=== PATIENT | male | born 1965 | race Caucasian/White ===

== ENCOUNTER 2017-08-12 07:22 | Inpatient (IN) | payer SELFPAY ==
[2017-08-12] MEDS ORDERED: DILTIAZEM HCL 5 MG/ML VIAL IV ONE ×2 (07:30→07:31)
[2017-08-12] MEDS ORDERED: DILTIAZEM HCL 125 MG in DEXTROSE 5 % IN WATER 100 ML IV PRN ×2 (07:31)
--- NOTE | 2017-08-12 07:31 | ERNOTE ---
<Tyrell Acosta - Last Filed: 08/12/17 07:42> Dyspnea - Date Date of Service: 08/12/17 - General Time Seen by Provider: 08/12/17 07:27 - Immun/Allergies/Home Medications Allergies/Adverse Reactions: Allergies venom-wasp [Wasp Venom] Allergy (Severe, Verified 08/12/17 07:29) Anaphylaxis Home Medications: HOME MEDICATIONS Diclofenac Potassium [Cataflam] 50 mg PO QID #60 tablet 09/25/14 [Last Taken Unknown] Diphenoxylate HCl/Atropine [Lomotil Tablet] 1 each PO QID #30 tablet 10/08/14 [ Last Taken Unknown] Furosemide [Lasix] 40 mg PO DAILY 08/12/17 [Last Taken Unknown] Metoprolol Succinate [Toprol Xl] 100 mg PO DAILY 08/12/17 [Last Taken Unknown] Mirtazapine [Mirtazapine (Remeron)] 15 mg PO DAILY 08/12/17 [Last Taken Unknown] Ondansetron [Zofran Odt] 4 mg PO PRN PRN 08/12/17 [Last Taken Unknown] Potassium Chloride 10 meq PO DAILY 08/12/17 [Last Taken Unknown] Warfarin Sodium [Coumadin] 7.5 mg PO DAILY 08/12/17 [Last Taken Unknown] - History of Present Illness Narrative: This is a 52-year-old male with a history of aortic valve dysfunction who comes to the emergency department with sudden onset of shortness of breath and palpitations last night at 10:30. He does have a history of atrial fibrillation. He says this feels like when his heart kicks over and atrial fibrillation. He denies overt chest pain he denies nausea vomiting he has some shortness of breath he does not have a fever or significant cough he has no other complaints Review of Systems - Review of Systems Constitutional: Present: no symptoms reported EYE: Present: no symptoms reported ENT: Present: no symptoms reported Respiratory: Present: shortness of breath Cardiology: Present: palpitations Gastrointestinal/Abdominal: Present: no symptoms reported Genitourinary: Present: no symptoms reported Musculoskeletal: Present: no symptoms reported Skin: Present: no symptoms reported Neurological: Present: no symptoms reported Endocrine: Present: no symptoms reported Hematologic/Lymphatic: Present: no symptoms reported Psych: Present: no symptoms reported All Other Systems: All systems neg except as marked - Patient's Past Medical History Patient History - Medical: Other - patient relates she has Buerger's disease and 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 Patient History - Surgical Procedures: Other - below-knee amputation on the left Physical Exam - Physical Exam General Appearance: Present: wd/wn, alert, other Head Exam: Present: normal inspection - patient appears in mild respiratory distress, no evidence of injury Eye Exam: Normal inspection: bilateral Ears, Nose, Throat: Present: normal ENT inspection Neck: Present: normal inspection, nontender Respiratory: Present: other - mild respiratory distress breath sounds are difficult to assess due to short respiration accessory muscle use Cardiovascular/Chest: Present: other - rate is tachycardic. Difficult to assess of regular or not Gastrointestinal/Abdominal: Present: normal bowel sounds, nontender, nondistended Back Exam: Present: normal inspection, normal range of motion, no CVA tenderness Extremity Exam: Present: normal inspection, non-tender, normal range of motion, other - patient has a left BKA Neurological Exam: Present: alert, oriented, normal mood/affect, no motor/ sensory deficits Skin Exam: Present: normal color, warm/dry Lymphatic Exam: Present: no adenopathy ED Progress - EKG EKG read: Interp. by me EKG Comments: EKG demonstrates atrial fibrillation with rapid ventricular response at 163 V2 has decreased amplitude no acute ischemic changes - Transfer of Care Physician Sign Out: Tyrell Acosta Brief History: 52-year-old male with a history of atrial fibrillation comes in with A. karime which started last night. Cardizem is being given. Labs are pending. Receiving Physician: Laura Jiménez Expected Disposition: Admit Departure Clinical Impression: Pneumonia Qualifiers: Pneumonia type: due to unspecified organism Laterality: left Lung location: lower lobe of lung Qualified Code(s): J18.1 - Lobar pneumonia, unspecified organism Afib Qualifiers: Atrial fibrillation type: unspecified Qualified Code(s): I48.91 - Unspecified atrial fibrillation - Departure Disposition: [facility] Condition: Good <Laura Jiménez - Last Filed: 08/12/17 11:11> Dyspnea - General Source: patient Exam Limitations: no limitations - Immun/Allergies/Home Medications Immunizations: IMMUNIZATION HX Immunizations Up to Date Yes History of Influenza Vaccine No Hx Pneumococcal Vaccination No - History of Present Illness Narrative: Patient was diagnosed with atrial fibrillation three months ago while living in [place]. He was initially admitted for three days, had 2-3 more hospital visits for elevated heart rate. He was also told that he has a valve problem ( mitral?) and that he couldn't be cardioverted till that is taking care off,was started on coumadin (INR a week ago 2.5). He is not sure if he ever was back in sinus rhythm. Every time he gets an exacerbation it is accompanied by dyspnoe, denies any chest pain - Patient's Past Medical History Patient History - Medical: No pertinent hx Patient History - Cardiac/Respiratory: Atrial Fibrillation, COPD, Hypertension, Valvular Heart Disease Patient History - Cancer: No Hx of Cancer - Social History Smoking Status: Former smoker - quit April 2017 after 45py ED Progress - Results and Orders Patient's Lab Results:: I have reviewed the patient's lab results. - Vital Signs Patient's Vital Signs:: I have reviewed the patient's vital signs. Vital Signs: Vital Signs 08/12/17 08/12/17 08/12/17 07:24 07:35 07:36 Temperature 36.3 C L Pulse Rate 180 H 134 H 175 H Respiratory 27 H 20 Rate Blood Pressure 162/78 162/78 O2 Sat by Pulse 100 97 Oximetry 08/12/17 08/12/17 08/12/17 08:00 08:06 08:22 Temperature Pulse Rate 119 H 180 H 129 H Respiratory 21 H Rate Blood Pressure 151/97 146/95 O2 Sat by Pulse 98 Oximetry - X-Ray X-Ray #1 X-Ray: chest - possible early left sided infiltrate Interpretation: Reviewed by me - CT/Ultrasound CT/Ultrasound Narrative: CT chest: no PE, possible infiltrate, cardiomegalie - Progress/Reassessment Progress Note-Subjective: 08/12/17 08:33 on cardizem drip at 5, HR 120-140's, O2sat 94-95 on RA patient still slightly short of breath, few wheezes and decreased air movement. 08/12/17 09:30 Patient heart rate 100's on the monitor, when coming in the room patient patient acutely more short of breath, HR 130-140 's, as far as he know he never had a chest CT, will give lovenox and get chest CT to rule out PE 08/12/17 11:[address] results with patient, comfortable, HR 110's 08/12/17 11:[address] Esthela lynne to admit for pneumonia and a-fib with RVR
[2017-08-12 07:55] LABS: Hematocrit 39.5 % (42.0-52.0); Hemoglobin 12.7 gm/dL (13.5-18.0); Mean Cell Volume 80.8 fl (78-100); Mean Corpuscular Hgb Conc 32.2 g/dl (32-36); Mean Platelet Volume 10.3 fl (6.0-9.5); Neutrophil # 5.3 K/mm3 (1.3-6.0); Neutrophil % 74.3 % (42-75.0); Platelet Count 134 K/mm3 (150-450); Red Blood Count 4.89 M/mm3 (4.7-6.0); Red Cell Distribution Width 14.9 % (11.5-14.0); White Blood Count 7.2 K/mm3 (4.0-10.5)
[2017-08-12 08:03] LABS: Anion Gap 13.8 mmol/L (6.8-13.8); BUN/Creatinine Ratio 16.9 (9.0-21.6); Calcium * 8.7 mg/dL (7.9-10.9); Carbon Dioxide 25.9 mmol/L (24-32.6); Estimated Creat Clear 78.8; Potassium 3.7 mmol/L (3.4-4.6)
[2017-08-12 08:11] LABS: Prothrombin Time (Patient) 12.4 Seconds (9.0-11.0)
[2017-08-12 08:14] LABS: INR 1.24 INR (0.90-1.10)
[2017-08-12] MEDS ORDERED: IPRATROPIUM BROMIDE 0.5 MG/2.5 ML VIAL.NEB IH ONE ×2 (08:42→08:49)
[2017-08-12] MEDS ORDERED: ENOXAPARIN SODIUM 100 MG/ML SYRG SC ONE ×3 (09:26→09:37)
[2017-08-12] MEDS ORDERED: ACETAMINOPHEN 325 MG TABLET PO PRN (12:34)
[2017-08-12] MEDS ORDERED: AZITHROMYCIN 250 MG TABLET PO STA (12:34)
[2017-08-12] MEDS ORDERED: FLU VACC QS2017-18(6MOS UP)/PF 60 MCG/0.5 ML SYRINGE IM ONE (13:22)
[2017-08-12] MEDS ORDERED: AZITHROMYCIN 250 MG TABLET ONE (14:00)
[2017-08-12] MEDS: LORazepam 1 MG TABLET PO PRN ×2 (14:27→21:24)
[2017-08-12] MEDS ORDERED: METOPROLOL TARTRATE 50 MG TABLET PO STA (14:31)
--- NOTE | 2017-08-12 14:47 | HP ---
Chief Complaint - Chief Complaint Date of Service: 08/12/17 Time of Service: 14:36 Chief Complaint: shortness of breath History of Present Illness: Haim Knox is a 52-year-old white male with previous medical history of hypertension, atrial fibrillation, who last night suddenly developed acute shortness of breath associated with palpitations. 3-4 months ago while in [place], the patient had a similar episode and was diagnosed with atrial fibrillation. He was also told that he had some problems with his aortic/ mitral valve? and that he needed it to be repaired. He said he had some calcifications and was told that it was not opening well. He does remember having a stress test done over there. His shortness of breath and palpitation did not get better and so the patient went or emergency room where he was found to be in atrial fibrillation with rapid ventricular response in the 160s to 170s. He was given a Cardizem bolus and was started on IV Cardizem drip and was admitted. He also had this chest x-ray which showed possible beginning pneumonia. Patient underwent a CT scan following PE protocol and this did not show any pulmonary embolism. Again the CT scan showed left lower lobe/lingular infiltrate consider pneumonia. He was started on IV Rocephin and azithromycin. Patient denies any chest pain, fever, or coughing but did admit to chills last night and he thought it was just because he lives in a . - Patient's Past Medical History Patient History - Medical: No pertinent hx Patient History - Cardiac/Respiratory: Atrial Fibrillation, COPD, Hypertension, Valvular Heart Disease Patient History - Cancer: No Hx of Cancer Patient History - Surgical Procedures: Cholecystectomy, Other - Left BKA Patient History - Other: None - Family History Mother Family History - Medical: No pertinent hx - Social History Living Situations: alone Abuse History: No History of abuse Psych History: No pertinent hx Smoking Status: Former smoker Have you smoked in the past 12 months: Yes Do you dip or chew tobacco: No Patient requests Smoking Cessation Consult: No Initiate information on Smoking Cessation: No Alcohol Use: none Drug Use: marijuana - Immunizations Immunizations Up to Date: Yes Hx Pneumococcal Vaccination: No History of Influenza Vaccine: No Review Of Systems (GEN) - Review of Systems Generalized/Overall Review: Present: Chills. Absent: Weakness, Fever EENTM: Present: No Symptoms Reported Respiratory: Present: Shortness of Breath. Absent: Cough, Orthopnea, Wheezing Cardiac: Present: Palpitations. Absent: Chest Pain, Edema Abdominal: Absent: Nausea, Vomiting Genitourinary: Absent: Urgency, Frequency Musculoskeletal: Absent: Joint Pain Allergies/Adverse Reactions: Allergies Allergy/AdvReac Type Severity Reaction Status Date / Time venom-wasp [Wasp Venom] Allergy Severe Anaphylaxis Verified 08/12/17 14:07 NSAIDS (Non-Steroidal AdvReac Unknown unknown Verified 08/12/17 14:10 Anti-Inflamma Home Medications: HOME MEDICATIONS Albuterol Sulfate [Albuterol Sulfate 2.5 MG/3 ML] 2.5 mg IH PRN PRN 08/12/17 [ Last Taken Unknown] Albuterol Sulfate [Proair Hfa] 2 puff IH Q4H PRN 08/12/17 [Last Taken Unknown] Fluticasone/Salmeterol [Advair 100-50 Diskus] 1 puff IH BID 08/12/17 [Last Taken Unknown] Furosemide [Lasix] 40 mg PO DAILY 08/12/17 [Last Taken Unknown] Metoprolol Succinate [Toprol Xl] 100 mg PO DAILY 08/12/17 [Last Taken Unknown] Mirtazapine [Mirtazapine (Remeron)] 30 mg PO HS 08/12/17 [Last Taken Unknown] Ondansetron [Zofran Odt] 4 mg PO PRN PRN 08/12/17 [Last Taken Unknown] Potassium Chloride 10 meq PO DAILY 08/12/17 [Last Taken Unknown] Warfarin Sodium [Coumadin] 3.25 mg PO DAILY 08/12/17 [Last Taken Unknown] Exam - Exam Vital Signs: Vital Signs - Last Taken Temp 36.6 C 08/12/17 12:03 Pulse 96 08/12/17 13:43 Resp 12 08/12/17 12:08 BP 141/87 08/12/17 12:03 Pulse Ox 96 08/12/17 12:08 Constitutional: Present: Alert, Oriented x3, Cooperative ENT Exam: Present: hearing grossly normal Eye Exam: bilateral eye: normal inspection, PERRL, EOMI Neck: Present: supple Respiratory: Present: decreased breath sounds, No rales, No wheezing Cardiovascular/Chest: Present: no JVD, systolic murmur, irregularly irregular Abdomen: Present: Normal bowel sounds, soft, nontender, nondistended Extremity: Present: no calf tenderness, other - left BKA Diagnostic Studies: Laboratory Results WBC 7.2 K/mm3 (4.0-10.5) 08/12/17 07:45 RBC 4.89 M/mm3 (4.7-6.0) 08/12/17 07:45 Hgb 12.7 gm/dL (13.5-18.0) L 08/12/17 07:45 Hct 39.5 % (42.0-52.0) L 08/12/17 07:45 MCV 80.8 fl (78-100) 08/12/17 07:45 MCH 26.0 pg (27-31) L 08/12/17 07:45 MCHC 32.2 g/dl (32-36) 08/12/17 07:45 RDW 14.9 % (11.5-14.0) H 08/12/17 07:45 Plt Count 134 K/mm3 (150-450) L 08/12/17 07:45 MPV 10.3 fl (6.0-9.5) H 08/12/17 07:45 Immature Gran % (Auto) 0.80 % (0.001-0.429) H 08/12/17 07:45 Immature Gran # (Auto) 0.06 K/mm3 (0.000-0.0310) H 08/12/17 07:45 Neutrophils % 74.3 % (42-75.0) 08/12/17 07:45 Lymphocytes % 14.7 % (20-51) L 08/12/17 07:45 Monocytes % 6.7 % (0.0-9) 08/12/17 07:45 Eosinophils % 2.8 % (0.0-3.0) 08/12/17 07:45 Basophils % 0.7 % (0.0-1.0) 08/12/17 07:45 Nucleated RBC % 0.0 k/mm3 (0-1) 08/12/17 07:45 Neutrophils # 5.3 K/mm3 (1.3-6.0) 08/12/17 07:45 Lymphocytes # 1.1 k/mm3 (1.5-3.5) L 08/12/17 07:45 Monocytes # 0.5 k/mm3 (0.0-1.0) 08/12/17 07:45 Eosinophils # 0.2 k/mm3 (0.0-0.7) 08/12/17 07:45 Absolute Basophils 0.1 k/mm3 (0.0-0.1) 08/12/17 07:45 PT 12.4 Seconds (9.0-11.0) H 08/12/17 07:45 INR (Anticoag Therapy) 1.24 INR (0.90-1.10) H 08/12/17 07:45 Sodium 142 mmol/L (132-142) 08/12/17 07:45 Plasma Sodium 142 mmol/L (130-142) 08/12/17 07:45 Potassium 3.7 mmol/L (3.4-4.6) 08/12/17 07:45 Chloride 106 mmol/L (97-106) 08/12/17 07:45 Carbon Dioxide 25.9 mmol/L (24-32.6) 08/12/17 07:45 Anion Gap 13.8 mmol/L (6.8-13.8) 08/12/17 07:45 BUN 21 mg/dL (6-23) 08/12/17 07:45 Creatinine 1.24 mg/dL (0.4-1.4) 08/12/17 07:45 Est GFR (Non-Af Amer) 65 mL/min (60-130) 08/12/17 07:45 BUN/Creatinine Ratio 16.9 (9.0-21.6) 08/12/17 07:45 Random Glucose 121 mg/dL (70-110) H 08/12/17 07:45 Calcium 8.7 mg/dL (7.9-10.9) 08/12/17 07:45 Troponin I Less than 0.017 ng/ml (0.00-0.10) 08/12/17 07:45 Assessment/Plan - Assessment/Plan (1) Afib Assessment: HR in the low teens. Will try to get his medical records. continue with IV cardizem drip. Will give 50mg of PO metoprolol tartrate now and taper cardizem drip and stop it. Will defer from doing work up as it looks he had several done in [facility] 3-4 motnhs ago. Problem: Acute Qualifiers: Atrial fibrillation type: unspecified Qualified Code(s): I48.91 - Unspecified atrial fibrillation (2) Pneumonia Assessment: continue with IV antibiotics Problem: Acute Qualifiers: Pneumonia type: due to unspecified organism Laterality: left Lung location: lower lobe of lung Qualified Code(s): J18.1 - Lobar pneumonia, unspecified organism (3) COPD (chronic obstructive pulmonary disease) Assessment: continue with inhalers and nebs Problem: Acute (4) Buerger's disease Assessment: s/p BKA. The patient stopped smoking only after being diagnosed with AFib 3-4 months ago. Problem: Acute
[2017-08-12] MEDS ORDERED: NON-FORMULARY 1 DOSE DOSE (Albuterol Sulfate 2.5 MG) IH PRN (14:48)
[2017-08-12] MEDS ORDERED: ALBUTEROL SULFATE 2.5 MG/0.5 ML VIAL.NEB IH PRN (15:00)
[2017-08-12] MEDS: WARFARIN SODIUM 10 MG TABLET PO SCH (16:48)
[2017-08-12] MEDS: ALBUTEROL SULFATE 2.5 MG/0.5 ML VIAL.NEB IH SCH (18:23)
[2017-08-12] MEDS: BUDESONIDE 0.25 MG/2 ML VIAL.NEB IH SCH (18:23)
[2017-08-12] MEDS ORDERED: METOPROLOL TARTRATE 25 MG TABLET PO ONE (20:15)
[2017-08-12] MEDS ORDERED: METOPROLOL TARTRATE 25 MG TABLET ONE (21:49)
[2017-08-12] MEDS ORDERED: MIRTAZAPINE 15 MG TABLET ONE (23:15)
[2017-08-12] MEDS ORDERED: MIRTAZAPINE 15 MG TABLET PO ONE (23:30)
[2017-08-12] MEDS: ONDANSETRON HCL/PF 2 MG/ML VIAL IV PRN (23:54)
[2017-08-13] MEDS ORDERED: LORazepam 2 MG/ML DISP.SYRIN IV ONE ×6 (00:44→11:38)
[2017-08-13] MEDS: ONDANSETRON HCL/PF 2 MG/ML VIAL IV PRN (03:39)
--- NOTE | 2017-08-13 05:25 | PN ---
Progess Note - Interim Narrative: 08/13/17 05:09 Patient stated he smokes meth and last used 2-3 days ago, he complaints of nausea, vomiting, abdominal pain, anxiety, restlessness , sleep disturbance and was observed hallucinating. He denies chest pain, shortness of breath, palpitation Ativan 1mg x2 and zofran. pt stated "if he could just get some meth he would feel much better" last time he went through withdrawal was while he was hospitalized in [place] for A-fib. case discussed with Attending and consulted Dr hamilton for further management. Serum drug screen and give additional dose of ativan 2mg x1. Plan of care discussed with pt he verbalized understanding and agrees.
[2017-08-13 06:34] LABS: Prothrombin Time (Patient) 12.2 Seconds (9.0-11.0)
[2017-08-13 06:35] LABS: INR 1.22 INR (0.90-1.10)
[2017-08-13] MEDS ORDERED: DIATRIZOATE MEGLUMINE, SODIUM 30 ML BTL PO ONE (07:09)
[2017-08-13] MEDS ORDERED: ONDANSETRON HCL/PF 2 MG/ML VIAL IV ONE (08:12)
--- NOTE | 2017-08-13 08:55 | PN ---
Subjective - Date and Time Seen Date: 08/13/17 Time: 08:46 Subjective Narrative: Patient has been having withdrawal reaction from methamphetamine. Dr. Montoya on consult.Currently sleeping. Had IV ativan around 7 am. Objective - Review of Systems Misc: All systems neg except as marked - asleep . - Vitals Vitals: Last Vital Signs Temp 37.2 C 08/13/17 03:00 Pulse 111 H 08/13/17 03:00 Resp 22 H 08/13/17 03:00 BP 150/90 08/13/17 03:00 Pulse Ox 95 08/13/17 03:00 - Abnormal Lab Findings Abnormal Lab Findings: Abnormal Lab Results 08/13/17 Range/Units 06:00 PT 12.2 H (9.0-11.0) Seconds INR (Anticoag Therapy) 1.22 H (0.90-1.10) INR - Exam Constitutional: Present: Other - sedated Respiratory: Present: decreased breath sounds, No rales, No wheezing Cardiovascular/Chest: Present: regular rate, rhythm, no JVD, tachycardia, systolic murmur Abdomen: Present: Normal bowel sounds, soft, nontender, nondistended Extremity: Present: no calf tenderness Assessment/Plan - Problems/Diagnosis (1) Methamphetamine dependence Problem: Acute Narrative: with withdrawal reaction Continue with IV ativan. If not succesful , will try Haldol. will get consult with Dr. Montoya. ADDENDUM:Fell down on the floor as he tried to stand up. will transfer back to the unit. (2) Afib Problem: Acute Qualifiers: Atrial fibrillation type: unspecified Qualified Code(s): I48.91 - Unspecified atrial fibrillation Narrative: continue with Toprol XL. (3) Pneumonia Problem: Acute Qualifiers: Pneumonia type: due to unspecified organism Laterality: left Lung location: lower lobe of lung Qualified Code(s): J18.1 - Lobar pneumonia, unspecified organism Narrative: continue with IV antibiotics. (4) COPD (chronic obstructive pulmonary disease) Problem: Acute Narrative: continue with inhalers/nebs. (5) Buerger's disease Problem: Acute
[2017-08-13] MEDS ORDERED: MIRTAZAPINE 15 MG TABLET PO SCH (09:00)
[2017-08-13] MEDS ORDERED: FUROSEMIDE 10 MG/ML VIAL IV ONE (09:43)
[2017-08-13] MEDS: METOPROLOL SUCCINATE 100 MG TABLET.SA PO SCH (09:59)
[2017-08-13] MEDS ORDERED: LABETALOL HCL 5 MG/ML VIAL IV ONE ×2 (10:00→13:00)
[2017-08-13] MEDS: FUROSEMIDE 40 MG TABLET PO SCH (10:00)
[2017-08-13] MEDS: POTASSIUM CHLORIDE 10 MEQ TABLET.SA PO SCH (10:19)
[2017-08-13 10:27] LABS: Cocaine Ur Negative (NEGATIVE); Urine Barbiturate Negative (NEGATIVE); Urine Benzodiazepines Negative (NEGATIVE); Urine Opiates Negative (NEGATIVE); Urine PCP Negative (NEGATIVE)
[2017-08-13 10:31] LABS: Urine THC Positive (NEGATIVE)
[2017-08-13] MEDS ORDERED: LORazepam 2 MG/ML DISP.SYRIN ONE (11:37)
[2017-08-13] MEDS ORDERED: AZITHROMYCIN 250 MG TABLET PO SCH (12:35)
[2017-08-13] MEDS: BUDESONIDE 0.25 MG/2 ML VIAL.NEB IH SCH ×2 (12:44→20:48)
[2017-08-13] MEDS: ALBUTEROL SULFATE 2.5 MG/0.5 ML VIAL.NEB IH SCH ×2 (12:44→20:44)
[2017-08-13] MEDS: AZITHROMYCIN 250 MG in DEXTROSE 5 % IN WATER 250 ML IV SCH ×2 (13:39)
[2017-08-13] MEDS ORDERED: DILTIAZEM HCL 5 MG/ML VIAL IV ONE (14:34)
[2017-08-13] MEDS ORDERED: HALOPERIDOL LACTATE 5 MG/ML VIAL IM PRN (14:36)
[2017-08-13 15:26] LABS: Hematocrit 41.4 % (42.0-52.0); Hemoglobin 13.4 gm/dL (13.5-18.0); Mean Corpuscular Hemoglobin 25.6 pg (27-31); Mean Corpuscular Hgb Conc 32.4 g/dl (32-36); Mean Platelet Volume 10.2 fl (6.0-9.5); Neutrophil # 10.3 K/mm3 (1.3-6.0); Neutrophil % 91.7 % (42-75.0); Platelet Count 166 K/mm3 (150-450); Red Blood Count 5.24 M/mm3 (4.7-6.0); Red Cell Distribution Width 15.3 % (11.5-14.0); White Blood Count 11.3 K/mm3 (4.0-10.5)
[2017-08-13 16:10] LABS: Albumin * 3.7 gm/dl (3.4-5.0); Anion Gap 15.2 mmol/L (6.8-13.8); BUN/Creatinine Ratio 13.4 (9.0-21.6); Bilirubin, Total 1.2 mg/dL (0.0-1.1); Ca. Corrected For Albumin 8.9 mg/dL (8.4-10.2); Carbon Dioxide 24.8 mmol/L (24-32.6); Total Protein 7.2 gm/dL (6.2-8.2)
[2017-08-13] MEDS: DILTIAZEM HCL 125 MG in DEXTROSE 5 % IN WATER 100 ML IV PRN ×4 (17:04→23:56)
[2017-08-13] MEDS: WARFARIN SODIUM 10 MG TABLET PO SCH (17:39)
[2017-08-13] MEDS: LORazepam 1 MG TABLET PO PRN (19:49)
[2017-08-13] MEDS: MIRTAZAPINE 15 MG TABLET PO SCH (21:09)
[2017-08-14 05:47] LABS: Hematocrit 40.9 % (42.0-52.0); Hemoglobin 13.2 gm/dL (13.5-18.0); Mean Cell Volume 79.7 fl (78-100); Mean Corpuscular Hemoglobin 25.7 pg (27-31); Mean Corpuscular Hgb Conc 32.3 g/dl (32-36); Mean Platelet Volume 10.1 fl (6.0-9.5); Neutrophil # 12.7 K/mm3 (1.3-6.0); Neutrophil % 81.8 % (42-75.0); Platelet Count 198 K/mm3 (150-450); Red Blood Count 5.13 M/mm3 (4.7-6.0); Red Cell Distribution Width 15.3 % (11.5-14.0); White Blood Count 15.6 K/mm3 (4.0-10.5)
[2017-08-14 06:05] LABS: Anion Gap 14.8 mmol/L (6.8-13.8); BUN/Creatinine Ratio 14.3 (9.0-21.6); Calcium * 9.2 mg/dL (7.9-10.9); Carbon Dioxide 27.8 mmol/L (24-32.6); Estimated Creat Clear 87.2; Potassium 3.6 mmol/L (3.4-4.6)
[2017-08-14 06:08] LABS: Prothrombin Time (Patient) 22.1 Seconds (9.0-11.0)
[2017-08-14] MEDS: ALBUTEROL SULFATE 2.5 MG/0.5 ML VIAL.NEB IH SCH ×2 (06:15→19:25)
[2017-08-14] MEDS: BUDESONIDE 0.25 MG/2 ML VIAL.NEB IH SCH ×2 (06:16→18:16)
[2017-08-14 06:22] LABS: INR 2.19 INR (0.90-1.10)
--- NOTE | 2017-08-14 07:03 | PN ---
Subjective - Date and Time Seen Date: 08/14/17 Time: 06:47 Subjective Narrative: Mr. Licona seen this am. Required Haldol x 1 due to agitation. Went into Afib with RVR rate in 120-130s but slowed down to 110s in 1 hour. Required O2 due to desaturations to 79% RA. Unable to be evaluated by psychiatry due to obtundation. Objective - Vitals Vitals: Last Vital Signs Temp 37.0 C 08/14/17 03:00 Pulse 117 H 08/14/17 06:25 Resp 22 H 08/14/17 06:25 BP 166/78 08/14/17 05:00 Pulse Ox 94 08/14/17 06:15 - Abnormal Lab Findings Abnormal Lab Findings: Abnormal Lab Results 08/13/17 08/13/17 08/14/17 Range/Units 15:24 15:24 05:43 WBC 11.3 H D (4.0-10.5) K/mm3 Hgb 13.4 L (13.5-18.0) gm/dL Hct 41.4 L (42.0-52.0) % MCH 25.6 L (27-31) pg RDW 15.3 H (11.5-14.0) % MPV 10.2 H (6.0-9.5) fl Immature Gran % (Auto) 0.70 H (0.001-0.429) % Immature Gran # (Auto) 0.08 H (0.000-0.0310) K/mm3 Neutrophils % 91.7 H (42-75.0) % Lymphocytes % 5.2 L (20-51) % Neutrophils # 10.3 H (1.3-6.0) K/mm3 Lymphocytes # 0.6 L (1.5-3.5) k/mm3 PT 22.1 H (9.0-11.0) Seconds INR (Anticoag Therapy) 2.19 H (0.90-1.10) INR Anion Gap 15.2 H (6.8-13.8) mmol/L Random Glucose 227 H D (70-110) mg/dL Total Bilirubin 1.2 H (0.0-1.1) mg/dL 08/14/17 08/14/17 Range/Units 05:43 05:43 WBC 15.6 H D (4.0-10.5) K/mm3 Hgb 13.2 L (13.5-18.0) gm/dL Hct 40.9 L (42.0-52.0) % MCH 25.7 L (27-31) pg RDW 15.3 H (11.5-14.0) % MPV 10.1 H (6.0-9.5) fl Immature Gran % (Auto) 0.50 H (0.001-0.429) % Immature Gran # (Auto) 0.08 H (0.000-0.0310) K/mm3 Neutrophils % 81.8 H (42-75.0) % Lymphocytes % 10.5 L (20-51) % Neutrophils # 12.7 H (1.3-6.0) K/mm3 Lymphocytes # (1.5-3.5) k/mm3 PT (9.0-11.0) Seconds INR (Anticoag Therapy) (0.90-1.10) INR Anion Gap 14.8 H (6.8-13.8) mmol/L Random Glucose 123 H D (70-110) mg/dL Total Bilirubin (0.0-1.1) mg/dL - Exam Constitutional: Present: No distress, Somnolent ENT Exam: Present: normal ENT inspection Neck: Present: non-tender Breasts: Present: Exam deferred Respiratory: Present: lungs clear, No rales, No wheezing Cardiovascular/Chest: Present: no edema, no murmur, irregularly irregular Abdomen: Present: Normal bowel sounds, soft, nontender /Rectal: Present: Exam deferred Extremity: Present: normal range of motion, non-tender, normal inspection Skin Exam: Present: warm/dry, no cyanosis Lymphatic: Present: no adenopathy Neurologic: Present: disoriented x 3 Appearance: Present: appropriate appearance Eye contact: Present: compulsive Thoughts: Present: no apparent hallucination Assessment/Plan - Problems/Diagnosis (1) Pneumonia Problem: Acute Qualifiers: Pneumonia type: due to unspecified organism Laterality: left Lung location: lower lobe of lung Qualified Code(s): J18.1 - Lobar pneumonia, unspecified organism Narrative: CT of the chest showed LLL Infiltrates. On Ceftriaxone and Azithromycin. Blood cultures pending. (2) Afib Problem: Acute Qualifiers: Atrial fibrillation type: unspecified Qualified Code(s): I48.91 - Unspecified atrial fibrillation Narrative: On coumadin. On max dose of Diltiazem gtt went into Afib with RVR of 120s-130s for about 1 hr in the night. On Metoprolol XL 100mg daily. (3) COPD (chronic obstructive pulmonary disease) Problem: Chronic Narrative: O2 supplementation. Continue Pulmicort and duoneb treatments. (4) Methamphetamine dependence Problem: Chronic Narrative: Psychiatry consulted. Psychiatry unable to to evaluate yesterday due to obtundation. (5) Buerger's disease Problem: Chronic
[2017-08-14] MEDS: METOPROLOL SUCCINATE 100 MG TABLET.SA PO SCH ×2 (07:06→09:00)
[2017-08-14] MEDS: FUROSEMIDE 40 MG TABLET PO SCH (08:39)
[2017-08-14] MEDS: POTASSIUM CHLORIDE 10 MEQ TABLET.SA PO SCH (08:40)
[2017-08-14] MEDS: DILTIAZEM HCL 125 MG in DEXTROSE 5 % IN WATER 100 ML IV PRN ×2 (10:13)
[2017-08-14] MEDS: AZITHROMYCIN 250 MG in DEXTROSE 5 % IN WATER 250 ML IV SCH ×2 (14:17)
[2017-08-14] MEDS: ONDANSETRON HCL/PF 2 MG/ML VIAL IV PRN (15:20)
[2017-08-14] MEDS: MIRTAZAPINE 15 MG TABLET PO SCH (21:05)
[2017-08-15] MEDS: LORazepam 1 MG TABLET PO PRN (02:21)
[2017-08-15] MEDS: ONDANSETRON HCL/PF 2 MG/ML VIAL IV PRN (02:55)
[2017-08-15] MEDS ORDERED: ONDANSETRON HCL/PF 2 MG/ML VIAL IV ONE (05:28)
[2017-08-15] MEDS: METOPROLOL SUCCINATE 100 MG TABLET.SA PO SCH ×2 (06:04→08:28)
[2017-08-15 06:17] LABS: Prothrombin Time (Patient) 28.7 Seconds (9.0-11.0)
[2017-08-15 06:21] LABS: INR 2.84 INR (0.90-1.10)
--- NOTE | 2017-08-15 06:47 | PN ---
Subjective - Date and Time Seen Date: 08/15/17 Time: 06:43 Subjective Narrative: Pt seen this am. Is complaining of feeling nauseated. Was in A-fib most of the night but HR was in the low 100s. This morning from about 06.00am he is noted to be in A-fib with RVR of 120s-130s. Is yet to be seen by Psychiatry. No other issues according to nursing. Objective - Vitals Vitals: Last Vital Signs Temp 36.9 C 08/15/17 00:00 Pulse 128 H 08/15/17 06:04 Resp 22 H 08/15/17 05:00 BP 183/123 08/15/17 06:04 Pulse Ox 91 08/15/17 04:00 - Abnormal Lab Findings Abnormal Lab Findings: Abnormal Lab Results 08/15/17 Range/Units 05:35 PT 28.7 H (9.0-11.0) Seconds INR (Anticoag Therapy) 2.84 H (0.90-1.10) INR - Exam Constitutional: Present: Alert, Oriented x3, Cooperative, No distress ENT Exam: Present: normal ENT inspection, moist mucous membranes. Absent: nasal drainage, pharyngeal erythema Breasts: Present: Exam deferred Respiratory: Present: lungs clear, No rales Cardiovascular/Chest: Present: no chest tenderness, no edema, no murmur, irregularly irregular Abdomen: Present: Normal bowel sounds, soft, nontender /Rectal: Present: Exam deferred Extremity: Present: other - LT below knee amputation. Skin Exam: Present: warm/dry, no cyanosis Lymphatic: Present: no adenopathy Neurologic: Present: alert, normal mood/affect, oriented x 3 Appearance: Present: appropriate appearance, appropriate insight Eye contact: Present: good eye contact, normal speech, compulsive Thoughts: Present: no apparent hallucination Assessment/Plan - Problems/Diagnosis (1) Pneumonia Problem: Acute Qualifiers: Pneumonia type: due to unspecified organism Laterality: left Lung location: lower lobe of lung Qualified Code(s): J18.1 - Lobar pneumonia, unspecified organism (2) Afib Problem: Acute Qualifiers: Atrial fibrillation type: unspecified Qualified Code(s): I48.91 - Unspecified atrial fibrillation (3) COPD (chronic obstructive pulmonary disease) Problem: Chronic (4) Methamphetamine dependence Problem: Chronic (5) Buerger's disease Problem: Chronic
[2017-08-15] MEDS: ALBUTEROL SULFATE 2.5 MG/0.5 ML VIAL.NEB IH SCH (06:55)
[2017-08-15] MEDS: POTASSIUM CHLORIDE 10 MEQ TABLET.SA PO SCH (08:30)
[2017-08-15] MEDS: FUROSEMIDE 40 MG TABLET PO SCH (08:30)
[2017-08-15 09:29] LABS: Hematocrit 42.6 % (42.0-52.0); Hemoglobin 13.5 gm/dL (13.5-18.0); Mean Cell Volume 81.3 fl (78-100); Mean Corpuscular Hemoglobin 25.8 pg (27-31); Mean Corpuscular Hgb Conc 31.7 g/dl (32-36); Mean Platelet Volume 10.6 fl (6.0-9.5); Neutrophil # 10.3 K/mm3 (1.3-6.0); Neutrophil % 81.5 % (42-75.0); Platelet Count 189 K/mm3 (150-450); Red Blood Count 5.24 M/mm3 (4.7-6.0); Red Cell Distribution Width 15.4 % (11.5-14.0); White Blood Count 12.6 K/mm3 (4.0-10.5)
[2017-08-15 09:41] LABS: Anion Gap 15.1 mmol/L (6.8-13.8); BUN/Creatinine Ratio 18.3 (9.0-21.6); Calcium * 9.2 mg/dL (7.9-10.9); Carbon Dioxide 27.2 mmol/L (24-32.6); Estimated Creat Clear 77.5; Potassium 4.3 mmol/L (3.4-4.6)
[2017-08-15] MEDS: BUDESONIDE 0.25 MG/2 ML VIAL.NEB IH SCH (10:58)
[2017-08-15 12:29] VITALS: BP 124/79
--- NOTE | 2017-08-15 13:25 | DS ---
(1) Afib Diagnosis(s): rate controlled now. Problem: Acute Qualifiers: Atrial fibrillation type: persistent Qualified Code(s): I48.1 - Persistent atrial fibrillation (2) Pneumonia Problem: Acute Qualifiers: Pneumonia type: due to unspecified organism Laterality: left Lung location: lower lobe of lung Qualified Code(s): J18.1 - Lobar pneumonia, unspecified organism (3) Methamphetamine dependence Problem: Chronic (4) COPD (chronic obstructive pulmonary disease) Problem: Chronic (5) Buerger's disease Problem: Chronic (6) Mitral valve stenosis, moderate Problem: Acute (7) Pulmonary hypertension Problem: Acute Description of Stay: Haim Knox is a 52-year-old white male with previous medical history of hypertension, atrial fibrillation, Chronic Hepatitis C, COPD, methamphetamine abuse, Buergers disease s/p BKA who was admitted on 08/12/17 because sudden shortness of breath. One day prior to admission, he suddenly developed acute shortness of breath associated with palpitations. 3-4 months ago while in [place], the patient had a similar episode and was diagnosed with atrial fibrillation. He was also told that he had some problems with his mitral valve ? and that he needed it to be repaired. He said he had some calcifications and was told that it was not opening well. He does remember having a stress test done over there. His shortness of breath and palpitation did not get better and so the patient went to our emergency room where he was found to be in atrial fibrillation with rapid ventricular response in the 160s to 170s. He was given a Cardizem bolus and was started on IV Cardizem drip and was admitted. He also had this chest x-ray which showed possible beginning pneumonia. Patient underwent a CT scan following PE protocol and this did not show any pulmonary embolism. Again the CT scan showed left lower lobe/lingular infiltrate consider pneumonia. He was started on IV Rocephin and azithromycin. Patient denies any chest pain, fever, or coughing but did admit to chills last night and he thought it was just because he lives in a . His HR got controlled and he was restarted on his Toprol XL . He then developed hallucinations and combative behavior and had to put back to SCU for methamphethamine withdrawl reactions. His HR and abd BP shot up to the roof. He was given IV ativan and then IV haldol . He also got IV Labetalol and the restarted back on Cardizem drip. Psych consult was done but but each time he came the patient was still sedated and drowsy. He is now rate controlled and AFib management with rate control vs rhythm control was discussed with patient. I talked with Dr. Montoya and he says it was safe to send him home and to follow up with him next week. We will refer him to cardiology of his choosing for his Afib , Pulmonary Hypertension and his Mitral Stenosis. He had a stress test in [facility] ([facility]) and it was normal . His MS had a mean gradient of 10 mm Hg. He also had Pulmonary HTN, severe, RVSP of 65-70. His EF was 60-65 % with LAE, 6.1 cm. Procedures Performed: none Discharge Disposition: Home self care Disposition: Home self-care Condition: Good Discharge Activity: Activity as tolerated Discharge Diet: Low salt Problem Oriented Discharge Instructions to Patient/Family: Mitral Valve Stenosis, Pulmonary Hypertension, Atrial Fibrillation, [id number] Additional Patient Instructions (free text): Follow-up with Saturday09/13/17 @ 9:30am Follow up with Saturday08/27/17 @ 1:30pm Please make an appointment with cardiology of his choosing- for his AFib, Pulmonary Hypertension and Mitral Stenosis. Prescriptions (Any new or edited meds): Acetaminophen [Tylenol] 650 mg PO Q4H PRN #30 tablet PRN Reason: Mild Pain Levofloxacin [Levaquin] 750 mg PO DAILY #5 tablet Warfarin Sodium [Coumadin] 5 mg PO DAILY #30 tablet Complete Home Medications List: Complete Home Medication List: Albuterol Sulfate [Albuterol Sulfate 2.5 MG/3 ML] 2.5 mg IH PRN PRN 08/12/17 Albuterol Sulfate [Proair Hfa] 2 puff IH Q4H PRN 08/12/17 Fluticasone/Salmeterol [Advair 100-50 Diskus] 1 puff IH BID 08/12/17 Furosemide [Lasix] 40 mg PO DAILY 08/12/17 Metoprolol Succinate [Toprol Xl] 100 mg PO DAILY 08/12/17 Mirtazapine [Remeron] 30 mg PO HS 08/12/17 Potassium Chloride 10 meq PO DAILY 08/12/17 Acetaminophen [Tylenol] 650 mg PO Q4H PRN #30 tablet 08/15/17 Levofloxacin [Levaquin] 750 mg PO DAILY #5 tablet 08/15/17 Warfarin Sodium [Coumadin] 5 mg PO DAILY #30 tablet 08/15/17 Amb Orders for Discharge: Prothrombin Time Time Frame: 08/19/17, Location: Determined By Patient
[2017-08-15] MEDS: AZITHROMYCIN 250 MG in DEXTROSE 5 % IN WATER 250 ML IV SCH ×2 (14:28)
[2017-08-15] MEDS ORDERED: WARFARIN SODIUM 6 MG TABLET PO SCH (17:00)
[2017-08-15] MEDS ORDERED: WARFARIN SODIUM 1 TAB TAB PO SCH (17:00)
== END 2017-08-15 15:36 | disposition home or self-care (01) | DRG 308 ==
LOC: ER 07:22 → MS 11:47 → INTOOBSV 11:47 → SCU 12:26 → MS 18:21 → SCU 08-13 09:12 → INTOOBSV 08-13 13:00 → OBSVTOIN 08-13 13:00
PROVIDERS: ADMIT Internal Medicine; ATTEND Internal Medicine
DX: I48.1 Persistent atrial fibrillation (principal); J18.1 Lobar pneumonia, unspecified organism; F15.23 Other stimulant dependence with withdrawal; I34.2 Nonrheumatic mitral (valve) stenosis; I73.1 Thromboangiitis obliterans [Buerger's disease]; J44.9 Chronic obstructive pulmonary disease, unspecified; I70.0 Atherosclerosis of aorta; Z89.512 Acquired absence of left leg below knee; Z79.01 Long term (current) use of anticoagulants; F17.210 Nicotine dependence, cigarettes, uncomplicated; Z23 Encounter for immunization
CPT/HCPCS: 36415; 70450; 71010; 71275; 74176; 80048; 80053; 80307; 84443; 84484; 85025; 85610; 87040; 90686; 93005; 94640; 96365; 96372; 96375; 99284; G0008; G0378; J2405

== ENCOUNTER 2017-08-20 20:47 | Observation (INO) | payer MEDICAID ==
[2017-08-20] MEDS ORDERED: DILTIAZEM HCL 5 MG/ML VIAL IV ONE ×2 (20:55→21:04)
[2017-08-20] MEDS ORDERED: DILTIAZEM HCL 125 MG in DEXTROSE 5 % IN WATER 100 ML IV PRN ×2 (21:09)
--- NOTE | 2017-08-20 21:31 | ERNOTE ---
Chest Pain/Cardiac HPI Chief Complaint: Chest Pain Time Seen by Provider: 08/20/17 20:53 Source: patient Exam Limitations: no limitations Immunizations: IMMUNIZATION HX Immunizations Up to Date Yes History of Influenza Vaccine Yes Hx Pneumococcal Vaccination No Allergies/Adverse Reactions: Allergies venom-wasp [Wasp Venom] Allergy (Severe, Verified 08/20/17 21:16) Anaphylaxis NSAIDS (Non-Steroidal Anti-Inflamma Adverse Reaction (Unknown, Verified 21:16) unknown Patient unsure of reason. in [place] told him to not take NSAIDs due to abdominal problems. Home Medications: HOME MEDICATIONS Albuterol Sulfate [Albuterol Sulfate 2.5 MG/3 ML] 2.5 mg IH PRN PRN 08/12/17 [ Last Taken Unknown] Albuterol Sulfate [Proair Hfa] 2 puff IH Q4H PRN 08/12/17 [Last Taken Unknown] Fluticasone/Salmeterol [Advair 100-50 Diskus] 1 puff IH BID 08/12/17 [Last Taken Unknown] Furosemide [Lasix] 40 mg PO DAILY 08/12/17 [Last Taken Unknown] Metoprolol Succinate [Toprol Xl] 100 mg PO DAILY 08/12/17 [Last Taken Unknown] Mirtazapine [Remeron] 30 mg PO HS 08/12/17 [Last Taken Unknown] Potassium Chloride 10 meq PO DAILY 08/12/17 [Last Taken Unknown] Acetaminophen [Tylenol] 650 mg PO Q4H PRN #30 tablet 08/15/17 [Last Taken Unknown] Warfarin Sodium [Coumadin] 3.75 mg PO DAILY 08/20/17 [Last Taken Unknown] Narrative: Pt began to have chest pressure and shortness of breath about 2-3 hours [employer]. He has mitral valve calcifications and has been told that he needs mitral valve replacement. He recently moved here from [place] where this was found and has not seen cardiology here. Timing: getting worse Severity/Quality: moderate, pressure Location: central Chest Pain Radiation: no radiation Activities at Onset: none Modifying Factors - Improves: Present: nothing Modifying Factors - Worsens: Present: movement Nitro Today/Relief: no nitro taken today Aspirin Treatment Today: no aspirin today Associated Symptoms: Present: shortness of breath, diaphoresis, palpitations. Absent: dizziness, syncope, nausea, vomiting Prior Chest Pain/Cardiac Workup: Reports: echocardiogram Prior Treatment: Reports: recently seen, recently hospitalized Review of Systems - Review of Systems Constitutional: Absent: recent illness EYE: Present: no symptoms reported ENT: Present: no symptoms reported Respiratory: Present: shortness of breath, orthopnea Cardiology: Present: See HPI, palpitations Gastrointestinal/Abdominal: Absent: nausea, vomiting Genitourinary: Present: no symptoms reported Musculoskeletal: Absent: back pain Skin: Present: no symptoms reported Neurological: Present: no symptoms reported Endocrine: Present: excessive sweating Hematologic/Lymphatic: Present: no symptoms reported Psych: Present: no symptoms reported - Patient's Past Medical History Patient History - Medical: No pertinent hx Patient History - Cardiac/Respiratory: Atrial Fibrillation, COPD, Hypertension, Valvular Heart Disease Patient History - Cancer: No Hx of Cancer Patient History - Surgical Procedures: Cholecystectomy, Other - Left BKA Patient History - Other: None - Family History Mother Family History - Medical: No pertinent hx Father Family History - Medical: No pertinent hx Family History - Cardiac/Respiratory: No pertinent hx Family History - Cancer: No pertinent family hx - Social History Living Situations: home Abuse History: No History of abuse Psych History: No pertinent hx Smoking Status: Former smoker Have you smoked in the past 12 months: No Do you dip or chew tobacco: No - Immunizations Immunizations Up to Date: Yes Hx Pneumococcal Vaccination: No History of Influenza Vaccine: Yes Physical Exam - Physical Exam General Appearance: Present: wd/wn, alert, moderate distress Head Exam: Present: normal inspection, no evidence of injury Eye Exam: Normal inspection: bilateral Ears, Nose, Throat: Present: normal ENT inspection Neck: Present: normal inspection, nontender, supple Respiratory: Present: normal breath sounds, lungs clear Cardiovascular/Chest: Present: tachycardia, irregularly irregular Gastrointestinal/Abdominal: Present: normal bowel sounds, nontender, nondistended, soft Extremity Exam: Present: normal except - - left BKA , no edema Neurological Exam: Present: alert, oriented, no motor/sensory deficits, toby maker II- XII nml as tested Skin Exam: Present: normal color, warm/dry Lymphatic Exam: Present: no adenopathy ED Progress - Results and Orders Patient's Lab Results:: I have reviewed the patient's lab results. Results and Orders: Laboratory Tests 08/20/17 08/20/17 08/20/17 21:27 21:27 21:27 WBC 8.8 Hgb 12.1 L Hct 37.9 L Plt Count 188 Neutrophils % 75.1 H PT 16.4 H INR (Anticoag Therapy) 1.63 H PTT (Maria Luz) 33.8 H D-Dimer Sodium 142 Potassium 3.5 Chloride 104 Carbon Dioxide 29.0 BUN 18 Creatinine 1.42 H Random Glucose 116 H Calcium 8.6 Total Bilirubin 1.0 AST 26 ALT 29 Alkaline Phosphatase 92 Troponin I 0.019 Total Protein 6.5 Albumin 3.5 TSH Urine Opiates Screen Barbiturate Screen Ur Phencyclidine Scrn Urine Amphetamine U Benzodiazepines Scrn Urine Cocaine Screen Urine Marijuana (THC) 08/20/17 08/20/17 08/21/17 21:27 23:20 00:51 WBC Hgb Hct Plt Count Neutrophils % PT INR (Anticoag Therapy) PTT (Randall) D-Dimer 0.28 Sodium Potassium Chloride Carbon Dioxide BUN Creatinine Random Glucose Calcium Total Bilirubin AST ALT Alkaline Phosphatase Troponin I Total Protein Albumin TSH 2.786 Urine Opiates Screen Negative Barbiturate Screen Negative Ur Phencyclidine Scrn Negative Urine Amphetamine Positive H U Benzodiazepines Scrn Negative Urine Cocaine Screen Negative Urine Marijuana (THC) Positive H - Vital Signs Patient's Vital Signs:: I have reviewed the patient's vital signs. Vital Signs: Vital Signs 08/20/17 08/20/17 20:55 20:57 Temperature 36.8 C Pulse Rate 157 H 165 H Respiratory 20 Rate Blood Pressure 126/97 126/97 - EKG EKG: atrial fibrillation EKG read: Interp. by me EKG Comments: #1 rate 165 #2 a-fib, rate 97 - X-Ray X-Ray #1 X-Ray: chest Interpretation: Interp. by me X-ray Comments: no edema or infiltrate. - Progress/Reassessment Chief Complaint: Chest Pain Progress:: Improved Progress Note-Subjective: 08/20/17 22:33 Spoke with Nilton MAHMOOD hospitalist. She agrees to accept the patient Departure Clinical Impression: Atrial fibrillation with RVR, Mitral valve annular calcification - Departure Disposition: [facility] Condition: Fair
[2017-08-20 21:35] LABS: Hematocrit 37.9 % (42.0-52.0); Hemoglobin 12.1 gm/dL (13.5-18.0); Mean Cell Volume 79.3 fl (78-100); Mean Corpuscular Hemoglobin 25.3 pg (27-31); Mean Corpuscular Hgb Conc 31.9 g/dl (32-36); Mean Platelet Volume 9.5 fl (6.0-9.5); Neutrophil # 6.6 K/mm3 (1.3-6.0); Neutrophil % 75.1 % (42-75.0); Platelet Count 188 K/mm3 (150-450); Red Blood Count 4.78 M/mm3 (4.7-6.0); Red Cell Distribution Width 14.9 % (11.5-14.0); White Blood Count 8.8 K/mm3 (4.0-10.5)
[2017-08-20 21:43] LABS: INR 1.63 INR (0.90-1.10); Partial Thrombolplastin Time 33.8 Seconds (24-32); Prothrombin Time (Patient) 16.4 Seconds (9.0-11.0)
[2017-08-20 21:50] LABS: Albumin * 3.5 gm/dl (3.4-5.0); Anion Gap 12.5 mmol/L (6.8-13.8); BUN/Creatinine Ratio 12.7 (9.0-21.6); Ca. Corrected For Albumin 8.7 mg/dL (8.4-10.2); Calcium * 8.6 mg/dL (7.9-10.9); Potassium 3.5 mmol/L (3.4-4.6); Total Protein 6.5 gm/dL (6.2-8.2)
[2017-08-20 21:53] LABS: Troponin I 0.019 ng/ml (0.00-0.10)
[2017-08-20] MEDS ORDERED: NORMAL SALINE 1,000 ML IV PRN (21:55)
--- NOTE | 2017-08-20 23:14 | HP ---
Chief Complaint - Chief Complaint Date of Service: 08/20/17 Time of Service: 23:13 Chief Complaint: Chest pain History of Present Illness: 52 years old male adm to the hospital from ER with reports of chest pain and shortness of breath.PMH significant for recurrent A-fib ( Coumadin), hypertension, pulmonary hypertension,COPD, smoker, methamphetamine abuse, pneumonia, buerger disease s/p BKA 1996 and mitral stenosis. pt stated he smoked marijuana this morning. Later in the day he began having shortness of breath accompanied with chest pain while at home relaxing. Shortness of breath and chest pain had since been self resolved. He denies nausea, vomiting, palpitation, fever, chills, diaphoresis, headache and dizziness. 08/13/17 Pt was admit for afib and went into methamphetamine withdrawal.He was discharge home 4 days later with plans for follow up with detail assembler and psychiatrist in 1 week. Pt stated he moved from [place] 4-5 months ago, while there he was diagnosed with afib and had a work-up. He also has mitral stenosis with calcification and was told he will need valve repair. Stress test normal, test was done at the [facility]. While in ER HR 103-120,Cardizem 25mg bolus given and drip initiated. Plan of care discussed with pt he verbalized understanding and agrees. - Patient's Past Medical History Patient History - Medical: No pertinent hx Patient History - Cardiac/Respiratory: Atrial Fibrillation, COPD, Hypertension, Valvular Heart Disease, Other - Pulmonary hypertension, buerger disease,, smoker , substance abuse Patient History - Cancer: No Hx of Cancer Patient History - Surgical Procedures: Cholecystectomy, Other - Left BKA Patient History - Other: None - Family History Mother Family History - Medical: No pertinent hx Father Family History - Medical: No pertinent hx Family History - Cardiac/Respiratory: No pertinent hx Family History - Cancer: No pertinent family hx - Social History Living Situations: home Abuse History: Hx of Substance Use Psych History: Psychiatric Hx Smoking Status: Former smoker Have you smoked in the past 12 months: No Do you dip or chew tobacco: No Drug Use: marijuana, meth - Immunizations Immunizations Up to Date: Yes Hx Pneumococcal Vaccination: No History of Influenza Vaccine: Yes Review Of Systems (GEN) - Review of Systems Generalized/Overall Review: Present: No Symptoms Reported EENTM: Present: No Symptoms Reported Respiratory: Present: Shortness of Breath Cardiac: Present: Chest Pain Abdominal: Present: No Symptoms Reported Genitourinary: Present: No Symptoms Reported Musculoskeletal: Present: No Symptoms Reported Neurological: Present: No Symptoms Reported Skin: Present: Bruising - right leg Endocrine: Present: No Symptoms Reported Immunizations: IMMUNIZATION HX Immunizations Up to Date Yes History of Influenza Vaccine Yes Hx Pneumococcal Vaccination No Allergies/Adverse Reactions: Allergies Allergy/AdvReac Type Severity Reaction Status Date / Time venom-wasp [Wasp Venom] Allergy Severe Anaphylaxis Verified 08/20/17 21:16 NSAIDS (Non-Steroidal AdvReac Unknown unknown Verified 08/20/17 21:16 Anti-Inflamma Home Medications: HOME MEDICATIONS Albuterol Sulfate [Albuterol Sulfate 2.5 MG/3 ML] 2.5 mg IH PRN PRN 08/12/17 [ Last Taken Unknown] Albuterol Sulfate [Proair Hfa] 2 puff IH Q4H PRN 08/12/17 [Last Taken Unknown] Fluticasone/Salmeterol [Advair 100-50 Diskus] 1 puff IH BID 08/12/17 [Last Taken Unknown] Furosemide [Lasix] 40 mg PO DAILY 08/12/17 [Last Taken Unknown] Metoprolol Succinate [Toprol Xl] 100 mg PO DAILY 08/12/17 [Last Taken Unknown] Mirtazapine [Remeron] 30 mg PO HS 08/12/17 [Last Taken Unknown] Potassium Chloride 10 meq PO DAILY 08/12/17 [Last Taken Unknown] Acetaminophen [Tylenol] 650 mg PO Q4H PRN #30 tablet 08/15/17 [Last Taken Unknown] Warfarin Sodium [Coumadin] 3.75 mg PO DAILY 08/20/17 [Last Taken Unknown] Exam - Exam Vital Signs: Vital Signs - Last Taken Temp 37 C 08/20/17 22:20 Pulse 92 08/20/17 22:44 Resp 17 08/20/17 22:44 BP 116/67 08/20/17 22:44 Pulse Ox 94 08/20/17 22:44 Constitutional: Present: Alert, Oriented x3, Cooperative, No distress ENT Exam: Present: hearing grossly normal Eye Exam: bilateral eye: normal inspection Neck: Present: full range of motion Back Exam: Present: normal inspection Breasts: Present: Exam deferred Respiratory: Present: chest non-tender, normal breath sounds, no respiratory distress, decreased breath sounds Cardiovascular/Chest: Present: normal peripheral pulses, no chest tenderness, no edema, systolic murmur, irregularly irregular Peripheral Pulses: dorsalis-pedis (R): 3+, dorsalis-pedis (L): 0 - left BKA Abdomen: Present: Normal bowel sounds, soft, nontender, nondistended /Rectal: Present: Exam deferred Extremity: Present: normal range of motion, non-tender, normal inspection, normal capillary refill, other - Left BKA Skin Exam: Present: warm/dry, other - Right leg bruising Neurologic: Present: normal mood/affect, oriented x 3 Appearance: Present: appropriate appearance Eye contact: Present: cooperative Thoughts: Present: normal thought pattern Diagnostic Studies: Laboratory Results WBC 8.8 K/mm3 (4.0-10.5) 08/20/17 21: RBC 4.78 M/mm3 (4.7-6.0) 08/20/17 21:27 Hgb 12.1 gm/dL (13.5-18.0) L 08/20/17 21: Hct 37.9 % (42.0-52.0) L 08/20/17 21: MCV 79.3 fl (78-100) 08/20/17 21: MCH 25.3 pg (27-31) L 08/20/17 21: MCHC 31.9 g/dl (32-36) L 08/20/17 21: RDW 14.9 % (11.5-14.0) H 08/20/17 21: Plt Count 188 K/mm3 (150-450) 08/20/17 21: MPV 9.5 fl (6.0-9.5) 08/20/17 21:27 Immature Gran % (Auto) 0.50 % (0.001-0.429) H 08/20/17 21: Immature Gran # (Auto) 0.04 K/mm3 (0.000-0.0310) H 08/20/17 21: Neutrophils % 75.1 % (42-75.0) H 08/20/17 21: Lymphocytes % 16.7 % (20-51) L 08/20/17 21: Monocytes % 5.0 % (0.0-9) 08/20/17 21: Eosinophils % 1.9 % (0.0-3.0) 08/20/17 21: Basophils % 0.8 % (0.0-1.0) 08/20/17 21: Nucleated RBC % 0.0 k/mm3 (0-1) 08/20/17 21: Neutrophils # 6.6 K/mm3 (1.3-6.0) H 08/20/17 21: Lymphocytes # 1.5 k/mm3 (1.5-3.5) 08/20/17 21: Monocytes # 0.4 k/mm3 (0.0-1.0) 08/20/17: Eosinophils # 0.2 k/mm3 (0.0-0.7) 08/20/17: Absolute Basophils 0.1 k/mm3 (0.0-0.1) 08/20/17 21: PT 16.4 Seconds (9.0-11.0) H 08/20/17 21:27 INR (Anticoag Therapy) 1.63 INR (0.90-1.10) H 08/20/17 21: PTT (Maria Luz) 33.8 Seconds (24-32) H 08/20/17 21:27 Sodium 142 mmol/L (132-142) 08/20/17 21: Plasma Sodium 142 mmol/L (130-142) 08/20/17 21: Potassium 3.5 mmol/L (3.4-4.6) 08/20/17 21: Chloride 104 mmol/L (97-106) 08/20/17 21: Carbon Dioxide 29.0 mmol/L (24-32.6) 08/20/17: Anion Gap 12.5 mmol/L (6.8-13.8) 08/20/17 21:27 BUN 18 mg/dL (6-23) 08/20/17 21: Creatinine 1.42 mg/dL (0.4-1.4) H 08/20/17 21:27 Est GFR (Non-Af Amer) 56 mL/min (60-130) L 08/20/17: BUN/Creatinine Ratio 12.7 (9.0-21.6) 08/20/17 21:27 Random Glucose 116 mg/dL (70-110) H 08/20/17 21:27 Calcium 8.6 mg/dL (7.9-10.9) 08/20/17 21:27 Calcium Adj for Albumin 8.7 mg/dL (8.4-10.2) 08/20/17 21:27 Total Bilirubin 1.0 mg/dL (0.0-1.1) 08/20/17 21:27 AST 26 U/L (0-48) 08/20/17 21:27 ALT 29 U/L (19-67) 08/20/17 21:27 Alkaline Phosphatase 92 U/L (50-170) 08/20/17 21: Troponin I 0.019 ng/ml (0.00-0.10) 08/20/17 21: Total Protein 6.5 gm/dL (6.2-8.2) 08/20/17 21: Albumin 3.5 gm/dl (3.4-5.0) 08/20/17 21:27 Assessment/Plan - Narrative Narrative: Recurrent Afib- possible due to drug abuse and non compliance with medication regimen. IN ER afib was seen on EKG CXR:pending TSH pending, troponin negative On adm INR 1.63 give Coumadin 4mg x1 now and continue home dose and monitor INR daily. Continue with Home medication Toprol XL 100mg daily when off Cardizem drip Continue Cardizem drip while rate uncontrolled. ? ECHO Substance abuse pt stated he last use methamphetamine was 1 week ago However urine tox + Methamphetamine and marijuana Ativan 2mg q4 PRN for withdrawal Zofran 4mg Q 6 PRN COPD- stable May resume home inhalers supplemented oxygen Buerger disease S/P right BKA Code status: Full GI ppx: Pepcid VTE ppx: Therapeutic Coumadin Time 40 minutes and previous records reviewed. - Assessment/Plan (1) Afib Problem: Acute Qualifiers: (2) Mitral valve stenosis, moderate Problem: Chronic (3) Pulmonary hypertension Problem: Chronic (4) Buerger's disease Problem: Chronic (5) COPD (chronic obstructive pulmonary disease) Problem: Chronic (6) Methamphetamine dependence Problem: Chronic
[2017-08-21 00:17] LABS: Cocaine Ur Negative (NEGATIVE); Urine Barbiturate Negative (NEGATIVE); Urine Benzodiazepines Negative (NEGATIVE); Urine Opiates Negative (NEGATIVE); Urine PCP Negative (NEGATIVE); Urine THC Positive (NEGATIVE)
[2017-08-21] MEDS ORDERED: WARFARIN SODIUM 4 MG TABLET PO ONE (00:31)
[2017-08-21] MEDS ORDERED: ONDANSETRON HCL/PF 2 MG/ML VIAL IV PRN (00:34)
[2017-08-21] MEDS ORDERED: ACETAMINOPHEN 325 MG TABLET PO PRN (00:34)
[2017-08-21] MEDS ORDERED: NON-FORMULARY 1 DOSE DOSE (Albuterol Sulfate 2.5 MG) IH PRN (00:34)
[2017-08-21] MEDS ORDERED: WARFARIN SODIUM 1 MG TABLET ONE (00:46)
[2017-08-21] MEDS: LORazepam 2 MG/ML DISP.SYRIN IV SCH ×5 (00:46→17:16)
[2017-08-21] MEDS: WARFARIN SODIUM 7.5 MG TABLET PO SCH ×2 (00:47→17:16)
[2017-08-21] MEDS: FAMOTIDINE 20 MG TABLET PO SCH ×2 (00:49→08:16)
[2017-08-21] MEDS ORDERED: MIRTAZAPINE 15 MG TABLET PO SCH (01:00)
[2017-08-21] MEDS ORDERED: ALBUTEROL SULFATE 2.5 MG/0.5 ML VIAL.NEB IH PRN (01:00)
[2017-08-21] MEDS ORDERED: BUDESONIDE 0.25 MG/2 ML VIAL.NEB ONE (05:47)
[2017-08-21 06:07] LABS: Prothrombin Time (Patient) 14.8 Seconds (9.0-11.0)
[2017-08-21 06:11] LABS: Anion Gap 12.8 mmol/L (6.8-13.8); BUN/Creatinine Ratio 11.9 (9.0-21.6); Calcium * 8.6 mg/dL (7.9-10.9); Estimated Creat Clear 82.8; Potassium 3.8 mmol/L (3.4-4.6)
[2017-08-21 06:12] LABS: INR 1.47 INR (0.90-1.10)
[2017-08-21] MEDS ORDERED: BUDESONIDE 0.25 MG/2 ML VIAL.NEB IH SCH (07:00)
[2017-08-21] MEDS ORDERED: ALBUTEROL SULFATE 2.5 MG/0.5 ML VIAL.NEB IH SCH (07:00)
[2017-08-21] MEDS: METOPROLOL SUCCINATE 100 MG TABLET.SA PO SCH ×2 (07:16→08:28)
[2017-08-21] MEDS ORDERED: POTASSIUM CHLORIDE 10 MEQ TABLET.SA PO SCH (09:00)
[2017-08-21] MEDS ORDERED: FUROSEMIDE 40 MG TABLET PO SCH (09:00)
--- NOTE | 2017-08-21 16:34 | DS ---
(1) Atrial fibrillation with RVR Diagnosis(s): Haim is a 52 yo male that was admitted for atrial fibrillation with RVR. He has known atrial fibrillation and is on coumadin and metoprolol for rate control. He has not been taking his metoprolol. His drug screen was also positive for methamphetamines. Because of this his heart rate was >150. He was placed on diltiazem drip and restarted on oral home medications. Gradually his heart rate came below 100. He was monitored for at least 6 hours after the diltiazem drip was discontinued and he continued to have controlled heart rate. He was discharged to home and educated to avoid meth and to take his metoprolol. Problem: Acute Procedures Performed: none Discharge Disposition: Home self care Disposition: Home self-care Condition: Fair Discharge Activity: Activity as tolerated Discharge Diet: Low salt Referrals: DOC,OUTSIDE [Non Staff Physicians] - Problem Oriented Discharge Instructions to Patient/Family: Atrial Fibrillation , [id number]-Mwud Additional Patient Instructions (free text): Continue taking your medications as prescribed from previous visit. Follow-up with a PCP & cardiology of your choosing. Complete Home Medications List: Complete Home Medication List: Albuterol Sulfate [Albuterol Sulfate 2.5 MG/3 ML] 2.5 mg IH PRN PRN 08/12/17 Albuterol Sulfate [Proair Hfa] 2 puff IH Q4H PRN 08/12/17 Fluticasone/Salmeterol [Advair 100-50 Diskus] 1 puff IH BID 08/12/17 Furosemide [Lasix] 40 mg PO DAILY 08/12/17 Mirtazapine [Remeron] 30 mg PO HS 08/12/17 Potassium Chloride 10 meq PO DAILY 08/12/17 Acetaminophen [Tylenol] 650 mg PO Q4H PRN #30 tablet 08/15/17 Budesonide [Pulmicort Respules] 0.25 mg IH BIDRT vial.neb 09/04/17 Dabigatran Etexilate Mesylate [Pradaxa] 150 mg PO BID #60 capsule 09/04/17 Metoprolol Tartrate [Lopressor] 200 mg PO BID 09/04/17
[2017-08-21 16:52] VITALS: BP 132/74
== END 2017-08-21 17:47 | disposition home or self-care (01) ==
LOC: ER 20:47 → INTOOBSV 22:41 → SCU 22:41
PROVIDERS: ADMIT Nurse Practitioner; ATTEND Family Medicine
DX: I48.2 Chronic atrial fibrillation (principal); F15.10 Other stimulant abuse, uncomplicated; I34.2 Nonrheumatic mitral (valve) stenosis; I10 Essential (primary) hypertension; I27.22 Pulmonary hypertension due to left heart disease; F12.20 Cannabis dependence, uncomplicated; I73.1 Thromboangiitis obliterans [Buerger's disease]; Z79.01 Long term (current) use of anticoagulants; Z89.512 Acquired absence of left leg below knee; Z91.14 Patient's other noncompliance with medication regimen; Z87.891 Personal history of nicotine dependence
CPT/HCPCS: 36415; 71010; 80048; 80053; 80307; 84443; 84484; 85025; 85379; 85610; 85730; 93005; 94640; 96365; 96366; 96375; 96376; 99285; G0378

== ENCOUNTER 2017-08-25 20:50 | Observation (INO) | payer MEDICAID ==
[2017-08-25] MEDS ORDERED: METOPROLOL TARTRATE 1 MG/ML AMPUL IV ONE ×2 (20:58→21:00)
[2017-08-25 21:14] LABS: Hematocrit 38.6 % (42.0-52.0); Hemoglobin 12.4 gm/dL (13.5-18.0); Mean Cell Volume 79.9 fl (78-100); Mean Corpuscular Hemoglobin 25.7 pg (27-31); Mean Corpuscular Hgb Conc 32.1 g/dl (32-36); Neutrophil % 75.9 % (42-75.0); Platelet Count 198 K/mm3 (150-450); Red Blood Count 4.83 M/mm3 (4.7-6.0); White Blood Count 7.9 K/mm3 (4.0-10.5)
--- NOTE | 2017-08-25 21:18 | ERNOTE ---
Chest Pain/Cardiac HPI Date of Service: 08/25/17 Chief Complaint: Tachycardia Time Seen by Provider: 08/25/17 20:57 Source: patient Exam Limitations: no limitations Immunizations: IMMUNIZATION HX Immunizations Up to Date Yes History of Influenza Vaccine No Hx Pneumococcal Vaccination No Allergies/Adverse Reactions: Allergies venom-wasp [Wasp Venom] Allergy (Severe, Verified 08/25/17 21:10) Anaphylaxis NSAIDS (Non-Steroidal Anti-Inflamma Adverse Reaction (Unknown, Verified 21:10) unknown Patient unsure of reason. in [place] told him to not take NSAIDs due to abdominal problems. Home Medications: HOME MEDICATIONS Albuterol Sulfate [Albuterol Sulfate 2.5 MG/3 ML] 2.5 mg IH PRN PRN 08/12/17 [ Last Taken Unknown] Albuterol Sulfate [Proair Hfa] 2 puff IH Q4H PRN 08/12/17 [Last Taken Unknown] Fluticasone/Salmeterol [Advair 100-50 Diskus] 1 puff IH BID 08/12/17 [Last Taken Unknown] Furosemide [Lasix] 40 mg PO DAILY 08/12/17 [Last Taken Unknown] Metoprolol Succinate [Toprol Xl] 100 mg PO DAILY 08/12/17 [Last Taken Unknown] Mirtazapine [Remeron] 30 mg PO HS 08/12/17 [Last Taken Unknown] Potassium Chloride 10 meq PO DAILY 08/12/17 [Last Taken Unknown] Acetaminophen [Tylenol] 650 mg PO Q4H PRN #30 tablet 08/15/17 [Last Taken Unknown] Warfarin Sodium [Coumadin] 3.75 mg PO DAILY 08/20/17 [Last Taken Unknown] Narrative: This patient presents to the emergency room via private vehicle for a rapid heart rate. This patient has a history of hypertension and a history of atrial fibrillation and mitral valve disease. He states that he had an episode of queasiness earlier on today and he vomited following that episode he felt as if he was in atrial fibrillation, and presented to the emergency room with slight shortness of breath and rapid heart rate. Review of Systems - Review of Systems Constitutional: Present: no symptoms reported EYE: Present: no symptoms reported ENT: Present: no symptoms reported Respiratory: Present: shortness of breath - Chin states he has mild shortness of breath Cardiology: Present: See HPI Gastrointestinal/Abdominal: Present: nausea, vomiting - patient had one episode of nausea and vomiting prior to the atrial fibrillation episode tonight. Genitourinary: Present: no symptoms reported Musculoskeletal: Present: no symptoms reported Skin: Present: no symptoms reported - Patient's Past Medical History Patient History - Medical: No pertinent hx Patient History - Cardiac/Respiratory: Atrial Fibrillation, COPD, Hypertension, Valvular Heart Disease Patient History - Cancer: No Hx of Cancer Patient History - Surgical Procedures: Cholecystectomy, Other Patient History - Other: None - Family History Mother Family History - Medical: No pertinent hx Family History - Cardiac/Respiratory: No pertinent hx Family History - Cancer: No pertinent family hx Father Family History - Medical: No pertinent hx Family History - Cardiac/Respiratory: No pertinent hx Family History - Cancer: No pertinent family hx - Social History Living Situations: home Abuse History: No History of abuse Psych History: No pertinent hx Smoking Status: Former smoker Have you smoked in the past 12 months: Yes Alcohol Use: none Drug Use: marijuana - Immunizations Immunizations Up to Date: Yes Hx Pneumococcal Vaccination: No History of Influenza Vaccine: No Physical Exam - Physical Exam General Appearance: Present: wd/wn, alert, no apparent distress, other - appear slightly pale and very nervous but not in any acute physical distress. Head Exam: Present: normal inspection, no evidence of injury Neck: Present: normal inspection, nontender, supple, full range of motion Respiratory: Present: no respiratory distress, normal breath sounds, no accessory muscle use, chest nontender, lungs clear Cardiovascular/Chest: Present: irregularly irregular, other - initially this patient's heart rate was elevated at a rate of 180/m that is prior to the presentation of this examiner to the emergency room. Upon arrival I noticed that the patient's heart rate i irregular and a rate of 153. Gastrointestinal/Abdominal: Present: normal bowel sounds, nontender, nondistended, soft, no organomegaly Back Exam: Present: normal inspection, normal range of motion Extremity Exam: Present: normal inspection, normal range of motion, no edema ED Progress - Results and Orders Patient's Lab Results:: I have reviewed the patient's lab results. - Vital Signs Patient's Vital Signs:: I have reviewed the patient's vital signs. Vital Signs: Vital Signs 08/25/17 08/25/17 08/25/17 21:03 21:04 21:09 Temperature 36.9 C Pulse Rate 145 H 186 H 136 H Respiratory 24 H Rate Blood Pressure 182/119 182/119 O2 Sat by Pulse 95 Oximetry 08/25/17 21:12 Temperature Pulse Rate 112 H Respiratory 14 Rate Blood Pressure 144/94 O2 Sat by Pulse 96 Oximetry - EKG EKG: atrial fibrillation - X-Ray X-Ray #1 X-Ray: chest - Progress/Reassessment Chief Complaint: Tachycardia Plan - Plan Plan: This patient's heart rate was severely elevated prior to this examiner getting to this emergency room however when I walked into the room the patient's heart rate was 153 and irregular. Immediately an IV line was started and Lopressor 5 mg was administered to the patient pulse decreased to 120-124 and still irregular. Departure Clinical Impression: Atrial fibrillation Qualifiers: Atrial fibrillation type: unspecified Qualified Code(s): I48.91 - Unspecified atrial fibrillation CHF (congestive heart failure) Qualifiers: Congestive heart failure type: unspecified congestive heart failure type Congestive heart failure chronicity: acute Qualified Code(s): I50.9 - Heart failure, unspecified - Departure Disposition: [facility] Condition: Stable
[2017-08-25 21:35] LABS: Troponin I Less than 0.017 ng/ml (0.00-0.10)
[2017-08-25 21:37] LABS: ALT 29 U/L (19-67); AST 24 U/L (0-48); Albumin * 3.5 gm/dl (3.4-5.0); Alkaline Phosphatase * 94 U/L (50-170); BNP * 3040 pg/mL (5-140); BUN/Creatinine Ratio 15.4 (9.0-21.6); Bilirubin, Total 0.8 mg/dL (0.0-1.1); Blood Urea Nitrogen 22 mg/dL (6-23); Ca. Corrected For Albumin 8.9 mg/dL (8.4-10.2); Calcium * 8.8 mg/dL (7.9-10.9); Carbon Dioxide 32.6 mmol/L (24-32.6); Chloride 105 mmol/L (97-106); Glucose * 105 mg/dL (70-110); Potassium 3.6 mmol/L (3.4-4.6); Sodium 145 mmol/L (132-142); Total Protein 6.7 gm/dL (6.2-8.2)
[2017-08-25] MEDS ORDERED: ONDANSETRON HCL/PF 2 MG/ML VIAL IV PRN (22:53)
[2017-08-25] MEDS ORDERED: ALBUTEROL SULFATE 200 PUFF INHALER IH PRN (22:54)
[2017-08-25] MEDS ORDERED: ACETAMINOPHEN 325 MG TABLET PO PRN (22:54)
--- NOTE | 2017-08-25 22:58 | HP ---
Chief Complaint - Chief Complaint Date of Service: 08/25/17 Time of Service: 22:57 Chief Complaint: Chest pain, shortness of breath History of Present Illness: 52 years old white male adm to the hospital with reports of shortness of breath, vomiting and cough.PMH significant for recurrent A-fib ( Coumadin), hypertension , pulmonary hypertension,COPD, smoker, methamphetamine abuse,pneumonia, buerger disease s/p BKA 1996 and mitral stenosis. Pt stated after lunch today he felt nauseated, diaphoretic and had episode of emesis x1. He denies palpitation,fever , chills and abdominal pain. pt stated he still abusing drugs, took all his home medications except for the Coumadin today. He had noticed increased shortness of breath with exertion and orthopnea x2 weeks ago. He need mitral valve repair and awaiting insurance approval in order to have insurance.In ER EKG: Afib RVR, a dose lopressor given and HR 102-110, Initial Troponin negative , BNP 3040. CXR: stable cardiomegaly, Trace left side pleural effusion. Persistent pulmonary venous congestion.No new cardiopulmonary findings,Pt stated due his lack of insurance he has not been able to follow up with door closer mechanic. Plan of care discussed with pt he verbalized understanding and agrees. 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 Patient History - Other: None - Family History Mother Family History - Medical: No pertinent hx Family History - Cardiac/Respiratory: No pertinent hx Family History - Cancer: No pertinent family hx Father Family History - Medical: No pertinent hx Family History - Cardiac/Respiratory: No pertinent hx Family History - Cancer: No pertinent family hx - Social History Living Situations: home Abuse History: Hx -Substance Use Tx Psych History: Hx of Anxiety Does anyone smoke in the home?: Yes Smoking Status: Current every day smoker Have you smoked in the past 12 months: Yes Patient requests Smoking Cessation Consult: No Alcohol Use: occasionally Drug Use: marijuana, meth - Immunizations Immunizations Up to Date: Yes Hx Pneumococcal Vaccination: No History of Influenza Vaccine: No Review Of Systems (GEN) - Review of Systems Generalized/Overall Review: Present: No Symptoms Reported EENTM: Present: No Symptoms Reported Respiratory: Present: Orthopnea Cardiac: Present: Palpitations Abdominal: Present: No Symptoms Reported Genitourinary: Present: No Symptoms Reported Musculoskeletal: Present: No Symptoms Reported Neurological: Present: No Symptoms Reported Skin: Present: No Symptoms Reported Endocrine: Present: No Symptoms Reported Allergies/Adverse Reactions: Allergies Allergy/AdvReac Type Severity Reaction Status Date / Time venom-wasp [Wasp Venom] Allergy Severe Anaphylaxis Verified 08/26/17 00:23 NSAIDS (Non-Steroidal AdvReac Unknown unknown Verified 08/26/17 00:23 Anti-Inflamma Home Medications: HOME MEDICATIONS Albuterol Sulfate [Albuterol Sulfate 2.5 MG/3 ML] 2.5 mg IH PRN PRN 08/12/17 [ Last Taken 08/25/17 07:00] Albuterol Sulfate [Proair Hfa] 2 puff IH Q4H PRN 08/12/17 [Last Taken 08/25/17 07:00] Fluticasone/Salmeterol [Advair 100-50 Diskus] 1 puff IH BID 08/12/17 [Last Taken 08/25/17 07:00] Furosemide [Lasix] 40 mg PO DAILY 08/12/17 [Last Taken 08/25/17 07:00] Metoprolol Succinate [Toprol Xl] 100 mg PO DAILY 08/12/17 [Last Taken 08/25/17 07:00] Mirtazapine [Remeron] 30 mg PO HS 08/12/17 [Last Taken 08/24/17 19:00] Potassium Chloride 10 meq PO DAILY 08/12/17 [Last Taken 08/25/17 07:00] Acetaminophen [Tylenol] 650 mg PO Q4H PRN #30 tablet 08/15/17 [Last Taken 07:00] Warfarin Sodium [Coumadin] 3.75 mg PO DAILY 08/20/17 [Last Taken 08/24/17 19:00] Exam - Exam Vital Signs: Vital Signs - Last Taken Temp 36.9 C 08/25/17 21:04 Pulse 122 H 08/25/17 22:30 Resp 13 08/25/17 22:30 BP 140/88 08/25/17 22:30 Pulse Ox 98 08/25/17 22:30 Constitutional: Present: Alert, Oriented x3, Cooperative, No distress, Overweight ENT Exam: Present: hearing grossly normal Eye Exam: bilateral eye: normal inspection Neck: Present: full range of motion Back Exam: Present: normal inspection Breasts: Present: Exam deferred Respiratory: Present: chest non-tender, lungs clear, normal breath sounds, no respiratory distress Cardiovascular/Chest: Present: normal peripheral pulses, regular rate, rhythm, no chest tenderness Peripheral Pulses: dorsalis-pedis (R): 3+, dorsalis-pedis (L): 0 - amputation Abdomen: Present: Normal bowel sounds, soft, nontender, nondistended, no rebound tenderness /Rectal: Present: Exam deferred Extremity: Present: normal range of motion, non-tender, normal inspection, no pedal edema Skin Exam: Present: warm/dry Neurologic: Present: oriented x 3 Appearance: Present: appropriate appearance Eye contact: Present: cooperative, good eye contact Thoughts: Present: normal thought pattern, no apparent hallucination Diagnostic Studies: Laboratory Results WBC 7.9 K/mm3 (4.0-10.5) 08/25/17 21:10 RBC 4.83 M/mm3 (4.7-6.0) 08/25/17 21:10 Hgb 12.4 gm/dL (13.5-18.0) L 08/25/17 21:10 Hct 38.6 % (42.0-52.0) L 08/25/17 21:10 MCV 79.9 fl (78-100) 08/25/17 21:10 MCH 25.7 pg (27-31) L 08/25/17 21:10 MCHC 32.1 g/dl (32-36) 08/25/17 21:10 RDW 15.0 % (11.5-14.0) H 08/25/17 21:10 Plt Count 198 K/mm3 (150-450) 08/25/17 21:10 MPV 10.0 fl (6.0-9.5) H 08/25/17 21:10 Immature Gran % (Auto) 0.40 % (0.001-0.429) 08/25/17 21:10 Immature Gran # (Auto) 0.03 K/mm3 (0.000-0.0310) 08/25/17 21:10 Neutrophils % 75.9 % (42-75.0) H 08/25/17 21:10 Lymphocytes % 16.2 % (20-51) L 08/25/17 21:10 Monocytes % 4.2 % (0.0-9) 08/25/17 21:10 Eosinophils % 2.5 % (0.0-3.0) 08/25/17 21:10 Basophils % 0.8 % (0.0-1.0) 08/25/17 21:10 Nucleated RBC % 0.0 k/mm3 (0-1) 08/25/17 21:10 Neutrophils # 6.0 K/mm3 (1.3-6.0) 08/25/17 21:10 Lymphocytes # 1.3 k/mm3 (1.5-3.5) L 08/25/17 21:10 Monocytes # 0.3 k/mm3 (0.0-1.0) 08/25/17 21:10 Eosinophils # 0.2 k/mm3 (0.0-0.7) 08/25/17 21:10 Absolute Basophils 0.1 k/mm3 (0.0-0.1) 08/25/17 21:10 Sodium 145 mmol/L (132-142) H 08/25/17 21:10 Plasma Sodium 145 mmol/L (130-142) H 08/25/17 21:10 Potassium 3.6 mmol/L (3.4-4.6) 08/25/17 21:10 Chloride 105 mmol/L (97-106) 08/25/17 21:10 Carbon Dioxide 32.6 mmol/L (24-32.6) 08/25/17 21:10 Anion Gap 11.0 mmol/L (6.8-13.8) 08/25/17 21:10 BUN 22 mg/dL (6-23) D 08/25/17 21:10 Creatinine 1.43 mg/dL (0.4-1.4) H 08/25/17 21:10 Est GFR (Non-Af Amer) 55 mL/min (60-130) L D 08/25/17 21:10 BUN/Creatinine Ratio 15.4 (9.0-21.6) 08/25/17 21:10 Random Glucose 105 mg/dL (70-110) 08/25/17 21:10 Calcium 8.8 mg/dL (7.9-10.9) 08/25/17 21:10 Calcium Adj for Albumin 8.9 mg/dL (8.4-10.2) 08/25/17 21:10 Total Bilirubin 0.8 mg/dL (0.0-1.1) 08/25/17 21:10 AST 24 U/L (0-48) 08/25/17 21:10 ALT 29 U/L (19-67) 08/25/17 21:10 Alkaline Phosphatase 94 U/L (50-170) 08/25/17 21:10 CK-MB (CK-2) 2.0 ng/mL (0.0-9.0) 08/25/17 21:10 Troponin I Less than 0.017 ng/ml (0.00-0.10) 08/25/17 21:10 B-Natriuretic Peptide 3040 pg/mL (5-140) H 08/25/17 21:10 Total Protein 6.7 gm/dL (6.2-8.2) 08/25/17 21:10 Albumin 3.5 gm/dl (3.4-5.0) 08/25/17 21:10 Assessment/Plan - Narrative Narrative: Recurrent Afib with RVR- possible due to drug abuse and non compliance with medication regimen. IN ER afib was seen on EKG CXR:stable cardiomegaly, trace leftside pleural effusion. persistent pulmonary vascular congestion Initial troponin negative On adm INR 1.34 continue home dose and monitor INR daily. Continue with Home medication Toprol XL 100mg daily Initiated Cardizem drip while rate still uncontrolled. 2D-ECHO pending Substance abuse Urine tox + Methamphetamine and marijuana Ativan 2mg PRN for withdrawal Zofran 4mg Q 6 PRN COPD- stable May resume home inhalers supplemented oxygen Buerger disease S/P right BKA Code status: Full GI ppx: Pepcid VTE ppx: SCD and ambulate Time 40 minutes , previous records review and case discussed with Dr. Andre - Assessment/Plan (1) CHF (congestive heart failure) Problem: Acute Qualifiers: Congestive heart failure type: unspecified congestive heart failure type Congestive heart failure chronicity: acute Qualified Code(s): I50.9 - Heart failure, unspecified (2) Atrial fibrillation with RVR Problem: Acute (3) COPD (chronic obstructive pulmonary disease) Problem: Chronic (4) Methamphetamine dependence Problem: Chronic (5) Buerger's disease Problem: Chronic
[2017-08-25] MEDS ORDERED: ALBUTEROL SULFATE 2.5 MG/3 ML VIAL.NEB IH PRN (23:04)
[2017-08-25] MEDS ORDERED: ALBUTEROL SULFATE 2.5 MG/3 ML VIAL.NEB IH SCH (23:15)
[2017-08-25] MEDS ORDERED: FUROSEMIDE 10 MG/ML VIAL IV ONE (23:22)
[2017-08-25 23:35] LABS: Prothrombin Time (Patient) 13.4 Seconds (9.0-11.0)
[2017-08-25 23:44] LABS: INR 1.34 INR (0.90-1.10)
[2017-08-25] MEDS: FAMOTIDINE 20 MG TABLET PO SCH (23:44)
[2017-08-25] MEDS: LORazepam 2 MG/ML DISP.SYRIN IV SCH (23:45)
[2017-08-25] MEDS ORDERED: ALBUTEROL SULFATE 2.5 MG/0.5 ML VIAL.NEB IH ONE (23:49)
[2017-08-25 23:59] LABS: Cocaine Ur Negative (NEGATIVE); Urine Barbiturate Negative (NEGATIVE); Urine Benzodiazepines Negative (NEGATIVE); Urine Opiates Negative (NEGATIVE); Urine PCP Negative (NEGATIVE)
[2017-08-26 00:01] LABS: Urine THC Positive (NEGATIVE)
[2017-08-26] MEDS: BUDESONIDE 0.25 MG/2 ML VIAL.NEB IH SCH ×2 (00:07→06:40)
[2017-08-26] MEDS ORDERED: DILTIAZEM HCL 125 MG in DEXTROSE 5 % IN WATER 100 ML IV PRN ×2 (00:45)
[2017-08-26] MEDS: LORazepam 2 MG/ML DISP.SYRIN IV SCH ×4 (02:51→16:01)
[2017-08-26 04:31] LABS: Prothrombin Time (Patient) 13.3 Seconds (9.0-11.0)
[2017-08-26 04:32] LABS: INR 1.33 INR (0.90-1.10)
[2017-08-26 04:43] LABS: Anion Gap 13.9 mmol/L (6.8-13.8); BNP * 3225 pg/mL (5-140); BUN/Creatinine Ratio 16.8 (9.0-21.6); Blood Urea Nitrogen 20 mg/dL (6-23); Calcium * 8.6 mg/dL (7.9-10.9); Carbon Dioxide 25.9 mmol/L (24-32.6); Chloride 106 mmol/L (97-106); Estimated Creat Clear 82.1; Glucose * 107 mg/dL (70-110); Potassium 3.8 mmol/L (3.4-4.6); Sodium 142 mmol/L (132-142); Troponin I Less than 0.017 ng/ml (0.00-0.10)
[2017-08-26] MEDS ORDERED: ALBUTEROL SULFATE 2.5 MG/0.5 ML VIAL.NEB IH PRN (06:30)
[2017-08-26] MEDS ORDERED: ALBUTEROL SULFATE 2.5 MG/0.5 ML VIAL.NEB IH SCH (07:00)
[2017-08-26] MEDS ORDERED: POTASSIUM CHLORIDE 10 MEQ TABLET.SA PO SCH (09:00)
[2017-08-26] MEDS ORDERED: METOPROLOL SUCCINATE 100 MG TABLET.SA PO SCH (09:00)
[2017-08-26] MEDS: FAMOTIDINE 20 MG TABLET PO SCH (09:15)
[2017-08-26 15:48] VITALS: BP 144/80
--- NOTE | 2017-08-26 16:28 | DS ---
(1) Atrial fibrillation with RVR Problem: Acute Description of Stay: Haim is a 52 yo male admitted with atrial fibrillation and rapid ventricular response. He tested positive for meth and pharmacy reports he has not picked up his metoprolol. He was admitted on diltiazem drip which brought down his heart rate from near 150 to below 100, he was switched to oral medications and weaned off drip. He tolerated this well and heart rate remained controlled. Discussed with the patient and he reports that cost is a big factor. Will send in a rx for metoprolol tartrate instead of succinate as this should be cheaper. He reports not being bothered by the twice a day dosing. Procedures Performed: none Discharge Disposition: Home self care Disposition: Home self-care Condition: Stable Discharge Activity: Activity as tolerated Discharge Diet: General/regular food Referrals: [facility] [Non Staff Physicians] - (Follow up with primary care provider next available.) Problem Oriented Discharge Instructions to Patient/Family: Atrial Fibrillation , [id number] Additional Patient Instructions (free text): Follow up with Dr. Proctor 08/27 at 1:30. Complete Home Medications List: Complete Home Medication List: Albuterol Sulfate [Albuterol Sulfate 2.5 MG/3 ML] 2.5 mg IH PRN PRN 08/12/17 Albuterol Sulfate [Proair Hfa] 2 puff IH Q4H PRN 08/12/17 Fluticasone/Salmeterol [Advair 100-50 Diskus] 1 puff IH BID 08/12/17 Furosemide [Lasix] 40 mg PO DAILY 08/12/17 Mirtazapine [Remeron] 30 mg PO HS 08/12/17 Potassium Chloride 10 meq PO DAILY 08/12/17 Acetaminophen [Tylenol] 650 mg PO Q4H PRN #30 tablet 08/15/17 Budesonide [Pulmicort Respules] 0.25 mg IH BIDRT vial.neb 09/04/17 Dabigatran Etexilate Mesylate [Pradaxa] 150 mg PO BID #60 capsule 09/04/17 Metoprolol Tartrate [Lopressor] 200 mg PO BID 09/04/17
[2017-08-26] MEDS ORDERED: WARFARIN SODIUM 5 MG TABLET PO SCH (17:00)
[2017-08-26] MEDS ORDERED: MIRTAZAPINE 15 MG TABLET PO SCH (21:00)
== END 2017-08-26 17:20 | disposition home or self-care (01) ==
LOC: ER 20:50 → MS 22:10 → SCU 08-26 02:16
PROVIDERS: ADMIT Nurse Practitioner; ATTEND Family Medicine
DX: I48.2 Chronic atrial fibrillation (principal); I10 Essential (primary) hypertension; I50.9 Heart failure, unspecified; I27.20 Pulmonary hypertension, unspecified; I37.8 Other nonrheumatic pulmonary valve disorders; F17.210 Nicotine dependence, cigarettes, uncomplicated; F15.20 Other stimulant dependence, uncomplicated; Z68.26 Body mass index [BMI] 26.0-26.9, adult; I73.1 Thromboangiitis obliterans [Buerger's disease]
CPT/HCPCS: 36415; 71010; 80048; 80053; 80307; 82553; 83880; 84484; 85025; 85610; 93005; 96365; 96374; 96375; 96376; 99284; G0378

== ENCOUNTER 2017-09-03 05:56 | Observation (INO) | payer MEDICAID ==
[2017-09-03] MEDS ORDERED: NORMAL SALINE 1,000 ML IV ONE (06:11)
[2017-09-03] MEDS ORDERED: DILTIAZEM HCL 5 MG/ML VIAL IV ONE ×2 (06:14→06:26)
--- NOTE | 2017-09-03 06:23 | ERNOTE ---
<Trung Lawrence - Last Filed: 09/03/17 06:59> Chest Pain/Cardiac HPI Chief Complaint: Chest Pain Time Seen by Provider: 09/03/17 06:05 Source: patient Exam Limitations: no limitations Immunizations: IMMUNIZATION HX Immunizations Up to Date Yes History of Influenza Vaccine No Hx Pneumococcal Vaccination No Allergies/Adverse Reactions: Allergies venom-wasp [Wasp Venom] Allergy (Severe, Verified 08/26/17 00:23) Anaphylaxis NSAIDS (Non-Steroidal Anti-Inflamma Adverse Reaction (Unknown, Verified 00:23) unknown Patient unsure of reason. in [place] told him to not take NSAIDs due to abdominal problems. Home Medications: HOME MEDICATIONS Albuterol Sulfate [Albuterol Sulfate 2.5 MG/3 ML] 2.5 mg IH PRN PRN 08/12/17 [ Last Taken 08/25/17 07:00] Albuterol Sulfate [Proair Hfa] 2 puff IH Q4H PRN 08/12/17 [Last Taken 08/25/17 07:00] Fluticasone/Salmeterol [Advair 100-50 Diskus] 1 puff IH BID 08/12/17 [Last Taken 08/25/17 07:00] Furosemide [Lasix] 40 mg PO DAILY 08/12/17 [Last Taken 08/25/17 07:00] Mirtazapine [Remeron] 30 mg PO HS 08/12/17 [Last Taken 08/24/17 19:00] Potassium Chloride 10 meq PO DAILY 08/12/17 [Last Taken 08/25/17 07:00] Acetaminophen [Tylenol] 650 mg PO Q4H PRN #30 tablet 08/15/17 [Last Taken 07:00] Warfarin Sodium [Coumadin] 3.75 mg PO DAILY 08/20/17 [Last Taken 08/24/17 19:00] Metoprolol Tartrate 100 mg PO BID #60 tablet 08/26/17 [Last Taken Unknown] Narrative: Pt woke up around 02:00 this am with chest pressure and palpitations. He tried to relax but could not get it to go away and presented to the ED Timing: constant Severity/Quality: moderate, pressure Location: central Chest Pain Radiation: no radiation Activities at Onset: sleep Modifying Factors - Improves: Present: nothing Modifying Factors - Worsens: Present: nothing Nitro Today/Relief: no nitro taken today Associated Symptoms: Absent: diaphoresis, nausea, vomiting Prior Chest Pain/Cardiac Workup: Reports: prior chest pain, cardiac cath Prior Treatment: Reports: recently seen - by cardiology yesterday and his metoprolol was increased Review of Systems - Review of Systems Constitutional: Present: fatigue. Absent: recent illness EYE: Present: no symptoms reported ENT: Present: no symptoms reported Respiratory: Present: shortness of breath Cardiology: Present: palpitations. Absent: syncope Gastrointestinal/Abdominal: Absent: nausea, vomiting Genitourinary: Present: no symptoms reported Musculoskeletal: Present: no symptoms reported Skin: Present: no symptoms reported Neurological: Absent: headache, numbness Endocrine: Absent: excessive sweating, flushing Hematologic/Lymphatic: Present: easy bruising Psych: Present: no symptoms reported - Patient's Past Medical History Patient History - Medical: No pertinent hx Patient History - Cardiac/Respiratory: Atrial Fibrillation, COPD, Hypertension, Valvular Heart Disease Patient History - Cancer: No Hx of Cancer Patient History - Surgical Procedures: Cholecystectomy, Other, Orthopedic Patient History - Other: None - Family History Mother Family History - Medical: No pertinent hx Family History - Cardiac/Respiratory: No pertinent hx Family History - Cancer: No pertinent family hx Father Family History - Medical: No pertinent hx Family History - Cardiac/Respiratory: No pertinent hx Family History - Cancer: No pertinent family hx - Social History Living Situations: home Abuse History: Hx -Substance Use Tx Psych History: Hx of Anxiety Alcohol Use: none Drug Use: marijuana - Immunizations Immunizations Up to Date: Yes Hx Pneumococcal Vaccination: No History of Influenza Vaccine: No Physical Exam - Physical Exam General Appearance: Present: wd/wn, alert, mild distress Eye Exam: Normal inspection: bilateral Ears, Nose, Throat: Present: normal ENT inspection Neck: Present: normal inspection, nontender Respiratory: Present: no respiratory distress, no accessory muscle use, lungs clear Cardiovascular/Chest: Present: irregularly irregular, systolic murmur Gastrointestinal/Abdominal: Present: normal bowel sounds, nontender, nondistended, soft Back Exam: Present: normal inspection, no vertebral tenderness Extremity Exam: Present: normal inspection, non-tender, normal range of motion, no edema Neurological Exam: Present: alert, oriented, normal mood/affect, no motor/ sensory deficits Skin Exam: Present: normal color, warm/dry Lymphatic Exam: Present: no adenopathy ED Progress - Vital Signs Vital Signs: Vital Signs 09/03/17 06:00 Temperature 36.1 C L Pulse Rate 153 H Respiratory 18 Rate Blood Pressure 158/99 O2 Sat by Pulse 98 Oximetry - EKG EKG: atrial fibrillation - with RVR 140-160 EKG read: Interp. by me - Progress/Reassessment Chief Complaint: Chest Pain - Transfer of Care Physician Sign Out: Trung Lawrence Receiving Physician: Corby Lundberg Pending Results: Labs, X-ray results Expected Disposition: Admit Departure Clinical Impression: Atrial fibrillation with RVR - Departure Disposition: [facility] Condition: Good <Corby Lundberg - Last Filed: 09/03/17 08:20> Chest Pain/Cardiac HPI Immunizations: IMMUNIZATION HX Immunizations Up to Date Yes History of Influenza Vaccine No Hx Pneumococcal Vaccination No ED Progress - Results and Orders Patient's Lab Results:: I have reviewed the patient's lab results. - Vital Signs Patient's Vital Signs:: I have reviewed the patient's vital signs. Vital Signs: Vital Signs 09/03/17 09/03/17 09/03/17 06:00 06:27 06:44 Temperature 36.1 C L Pulse Rate 153 H 163 H 10 L Respiratory 18 18 Rate Blood Pressure 158/99 130/94 134/81 O2 Sat by Pulse 98 91 Oximetry 09/03/17 09/03/17 09/03/17 07:10 07:14 07:35 Temperature Pulse Rate 117 H 111 H 119 H Respiratory 21 H 24 H Rate Blood Pressure 137/99 139/89 132/79 O2 Sat by Pulse 93 94 Oximetry 09/03/17 08:10 Temperature Pulse Rate 105 H Respiratory 22 H Rate Blood Pressure 118/64 O2 Sat by Pulse 91 Oximetry - X-Ray X-Ray #1 X-Ray: chest Interpretation: Interp. by me X-ray Comments: I reviewed official radiology report - Progress/Reassessment Progress Note-Subjective: 09/03/17 08:[address] Lawrence's note for full H&P. IV cardizem continued. I spoke with Dr Mejias, he will admit.
[2017-09-03 06:25] LABS: Hematocrit 40.9 % (42.0-52.0); Mean Cell Volume 79.3 fl (78-100); Mean Corpuscular Hemoglobin 25.2 pg (27-31); Mean Corpuscular Hgb Conc 31.8 g/dl (32-36); Mean Platelet Volume 9.5 fl (6.0-9.5); Neutrophil # 5.7 K/mm3 (1.3-6.0); Neutrophil % 69.4 % (42-75.0); Platelet Count 192 K/mm3 (150-450); Red Blood Count 5.16 M/mm3 (4.7-6.0); Red Cell Distribution Width 14.8 % (11.5-14.0); White Blood Count 8.1 K/mm3 (4.0-10.5)
[2017-09-03 06:34] LABS: Prothrombin Time (Patient) 11.4 Seconds (9.0-11.0)
[2017-09-03 06:37] LABS: INR 1.14 INR (0.90-1.10); Partial Thrombolplastin Time 29.4 Seconds (24-32)
[2017-09-03 06:46] LABS: Albumin * 3.8 gm/dl (3.4-5.0); Anion Gap 14.6 mmol/L (6.8-13.8); BUN/Creatinine Ratio 14.5 (9.0-21.6); Ca. Corrected For Albumin 8.6 mg/dL (8.4-10.2); Calcium * 8.8 mg/dL (7.9-10.9); Carbon Dioxide 25.3 mmol/L (24-32.6); Potassium 3.9 mmol/L (3.4-4.6); Total Protein 6.8 gm/dL (6.2-8.2); Troponin I 0.029 ng/ml (0.00-0.10)
[2017-09-03] MEDS ORDERED: DILTIAZEM HCL 125 MG in DEXTROSE 5 % IN WATER 100 ML IV PRN ×2 (06:49)
[2017-09-03] MEDS ORDERED: LORazepam 2 MG/ML DISP.SYRIN IV ONE (07:43)
[2017-09-03] MEDS ORDERED: LORazepam 2 MG/ML DISP.SYRIN ONE (07:46)
[2017-09-03] MEDS ORDERED: DABIGATRAN ETEXILATE MESYLATE 150 MG CAPSULE PO ONE (08:30)
[2017-09-03] MEDS ORDERED: ALBUTEROL SULFATE 2.5 MG/0.5 ML VIAL.NEB IH PRN (09:39)
[2017-09-03] MEDS ORDERED: ACETAMINOPHEN 325 MG TABLET PO PRN (09:39)
[2017-09-03] MEDS ORDERED: NON-FORMULARY 1 DOSE DOSE (Albuterol Sulfate 2.5 MG) IH PRN (09:39)
[2017-09-03] MEDS: METOPROLOL TARTRATE 25 MG TABLET PO SCH ×2 (09:47→20:04)
[2017-09-03] MEDS: LORazepam 1 MG TABLET PO PRN ×2 (09:47→18:43)
[2017-09-03 11:07] LABS: Cocaine Ur Negative (NEGATIVE); Urine Barbiturate Negative (NEGATIVE); Urine Benzodiazepines Negative (NEGATIVE); Urine Opiates Negative (NEGATIVE); Urine PCP Negative (NEGATIVE)
[2017-09-03 11:08] LABS: Urine THC Positive (NEGATIVE)
--- NOTE | 2017-09-03 13:17 | HP ---
Chief Complaint - Chief Complaint Date of Service: 09/03/17 Time of Service: 13:11 Chief Complaint: A fib RVR History of Present Illness: Problem at least two months, also meth user, also valve problem. Woke this morning with more severe problem, in ER rate 150. - Patient's Past Medical History Patient History - Medical: No pertinent hx Patient History - Cardiac/Respiratory: Atrial Fibrillation, COPD, Hypertension, Valvular Heart Disease Patient History - Cancer: No Hx of Cancer Patient History - Surgical Procedures: Cholecystectomy, Other, Orthopedic Patient History - Other: None - Family History Mother Family History - Medical: No pertinent hx Family History - Cardiac/Respiratory: No pertinent hx Family History - Cancer: No pertinent family hx Father Family History - Medical: No pertinent hx Family History - Cardiac/Respiratory: No pertinent hx Family History - Cancer: No pertinent family hx - Social History Living Situations: home Abuse History: Hx -Substance Use Tx Psych History: Hx of Anxiety Smoking Status: Former smoker Have you smoked in the past 12 months: No Do you dip or chew tobacco: No Smoking Stop Date: 05/25/17 Patient requests Smoking Cessation Consult: No Initiate information on Smoking Cessation: No Alcohol Use: none Drug Use: marijuana, meth - Immunizations Immunizations Up to Date: Yes Hx Pneumococcal Vaccination: No History of Influenza Vaccine: No Review Of Systems (GEN) - Review of Systems Generalized/Overall Review: Present: Weakness EENTM: Present: No Symptoms Reported Respiratory: Present: No Symptoms Reported Cardiac: Present: Palpitations - ffffffffffffffffffffffff Abdominal: Present: No Symptoms Reported - fffffffffffffffffffffffffffffffff Genitourinary: Present: No Symptoms Reported - fffffffffffffffffffffffffffffffffffffffff Musculoskeletal: Present: No Symptoms Reported Neurological: Present: Anxiety, Depressed, Emotional Problems Skin: Present: No Symptoms Reported Endocrine: Present: No Symptoms Reported Misc: All systems neg except as marked Allergies/Adverse Reactions: Allergies Allergy/AdvReac Type Severity Reaction Status Date / Time venom-wasp [Wasp Venom] Allergy Severe Anaphylaxis Verified 09/03/17 09:43 NSAIDS (Non-Steroidal AdvReac Unknown unknown Verified 09/03/17 09:43 Anti-Inflamma Home Medications: HOME MEDICATIONS Albuterol Sulfate [Albuterol Sulfate 2.5 MG/3 ML] 2.5 mg IH PRN PRN 08/12/17 [ Last Taken 08/25/17 07:00] Albuterol Sulfate [Proair Hfa] 2 puff IH Q4H PRN 08/12/17 [Last Taken 08/25/17 07:00] Fluticasone/Salmeterol [Advair 100-50 Diskus] 1 puff IH BID 08/12/17 [Last Taken 08/25/17 07:00] Furosemide [Lasix] 40 mg PO DAILY 08/12/17 [Last Taken 08/25/17 07:00] Mirtazapine [Remeron] 30 mg PO HS 08/12/17 [Last Taken 08/24/17 19:00] Potassium Chloride 10 meq PO DAILY 08/12/17 [Last Taken 08/25/17 07:00] Acetaminophen [Tylenol] 650 mg PO Q4H PRN #30 tablet 08/15/17 [Last Taken 07:00] Warfarin Sodium [Coumadin] 3.75 mg PO DAILY 08/20/17 [Last Taken 08/24/17 19:00] Metoprolol Tartrate 100 mg PO BID #60 tablet 08/26/17 [Last Taken Unknown] Exam - Exam Vital Signs: Vital Signs - Last Taken Selected Entries 09/03/17 12:52 Pulse Rate 79 Pulse Rhythm Irregular Respiratory 18 Rate Respiratory Normal Depth Respiratory Non-Labored Effort Respiratory Normal Pattern Blood Pressure 131/89 Blood Pressure Supine Position O2 Sat by Pulse 100 Oximetry Oxygen Delivery Nasal Cannula Method Oxygen Flow 2 Rate Constitutional: Present: Alert, Oriented x3, Cooperative, Well developed, Well nourished, Other - tearful ENT Exam: Present: normal ENT inspection, hearing grossly normal Neck: Present: normal inspection Back Exam: Present: no CVA tenderness, no vertebral tenderness Respiratory: Present: normal breath sounds, no respiratory distress Cardiovascular/Chest: Present: no edema, no murmur, irregularly irregular Abdomen: Present: Normal bowel sounds, soft, nontender, nondistended, no rebound tenderness, no hepatospenomegaly - ffffffffff, no masses Extremity: Present: other - amputation left above ankle Neurologic: Present: alert, oriented x 3 Appearance: Present: appropriate appearance, neat Eye contact: Present: cooperative, good eye contact, normal speech Diagnostic Studies: Abnormal Lab Results 09/03/17 Range/Units 10:45 Urine Amphetamine Positive H (NEGATIVE) Urine Marijuana (THC) Positive H (NEGATIVE) Laboratory Results WBC 8.1 K/mm3 (4.0-10.5) 09/03/17 06:20 RBC 5.16 M/mm3 (4.7-6.0) 09/03/17 06:20 Hgb 13.0 gm/dL (13.5-18.0) L 09/03/17 06:20 Hct 40.9 % (42.0-52.0) L 09/03/17 06:20 MCV 79.3 fl (78-100) 09/03/17 06:20 MCH 25.2 pg (27-31) L 09/03/17 06:20 MCHC 31.8 g/dl (32-36) L 09/03/17 06:20 RDW 14.8 % (11.5-14.0) H 09/03/17 06:20 Plt Count 192 K/mm3 (150-450) 09/03/17 06:20 MPV 9.5 fl (6.0-9.5) 09/03/17 06:20 Immature Gran % (Auto) 0.20 % (0.001-0.429) 09/03/17 06:20 Immature Gran # (Auto) 0.02 K/mm3 (0.000-0.0310) 09/03/17 06:20 Neutrophils % 69.4 % (42-75.0) 09/03/17 06:20 Lymphocytes % 21.9 % (20-51) 09/03/17 06:20 Monocytes % 5.0 % (0.0-9) 09/03/17 06:20 Eosinophils % 2.6 % (0.0-3.0) 09/03/17 06:20 Basophils % 0.9 % (0.0-1.0) 09/03/17 06:20 Nucleated RBC % 0.0 k/mm3 (0-1) 09/03/17 06:20 Neutrophils # 5.7 K/mm3 (1.3-6.0) 09/03/17 06:20 Lymphocytes # 1.8 k/mm3 (1.5-3.5) 09/03/17 06:20 Monocytes # 0.4 k/mm3 (0.0-1.0) 09/03/17 06:20 Eosinophils # 0.2 k/mm3 (0.0-0.7) 09/03/17 06:20 Absolute Basophils 0.1 k/mm3 (0.0-0.1) 09/03/17 06:20 PT 11.4 Seconds (9.0-11.0) H 09/03/17 06:20 INR (Anticoag Therapy) 1.14 INR (0.90-1.10) H 09/03/17 06:20 PTT ([place]) 29.4 Seconds (24-32) 09/03/17 06:20 Sodium 142 mmol/L (132-142) 09/03/17 06:20 Plasma Sodium 143 mmol/L (130-142) H 09/03/17 06:20 Potassium 3.9 mmol/L (3.4-4.6) 09/03/17 06:20 Chloride 106 mmol/L (97-106) 09/03/17 06:20 Carbon Dioxide 25.3 mmol/L (24-32.6) 09/03/17 06:20 Anion Gap 14.6 mmol/L (6.8-13.8) H 09/03/17 06:20 BUN 17 mg/dL (6-23) 09/03/17 06:20 Creatinine 1.17 mg/dL (0.4-1.4) 09/03/17 06:20 Est GFR (Non-Af Amer) 70 mL/min (60-130) 09/03/17 06:20 BUN/Creatinine Ratio 14.5 (9.0-21.6) 09/03/17 06:20 Random Glucose 148 mg/dL (70-110) H 09/03/17 06:20 Calcium 8.8 mg/dL (7.9-10.9) 09/03/17 06:20 Calcium Adj for Albumin 8.6 mg/dL (8.4-10.2) 09/03/17 06:20 Total Bilirubin 1.0 mg/dL (0.0-1.1) 09/03/17 06:20 AST 37 U/L (0-48) 09/03/17 06:20 ALT 32 U/L (19-67) 09/03/17 06:20 Alkaline Phosphatase 90 U/L (50-170) 09/03/17 06:20 Troponin I 0.029 ng/ml (0.00-0.10) 09/03/17 06:20 Total Protein 6.8 gm/dL (6.2-8.2) 09/03/17 06:20 Albumin 3.8 gm/dl (3.4-5.0) 09/03/17 06:20 Urine Opiates Screen Negative (NEGATIVE) 09/03/17 10:45 Barbiturate Screen Negative (NEGATIVE) 09/03/17 10:45 Ur Phencyclidine Scrn Negative (NEGATIVE) 09/03/17 10:45 Urine Amphetamine Positive (NEGATIVE) H 09/03/17 10:45 U Benzodiazepines Scrn Negative (NEGATIVE) 09/03/17 10:45 Urine Cocaine Screen Negative (NEGATIVE) 09/03/17 10:45 Urine Marijuana (THC) Positive (NEGATIVE) H 09/03/17 10:45 Assessment/Plan - Procedures Results: Anticoagulation. Rate control. Avoid meth. - Assessment/Plan (1) Atrial fibrillation with RVR Problem: Acute (2) Mitral valve annular calcification Problem: Acute (3) Methamphetamine dependence Problem: Chronic (4) Mitral valve stenosis, moderate Problem: Chronic (5) Pulmonary hypertension Problem: Chronic
[2017-09-03] MEDS: ALBUTEROL SULFATE 2.5 MG/0.5 ML VIAL.NEB IH SCH ×2 (18:44→19:30)
[2017-09-03] MEDS: BUDESONIDE 0.25 MG/2 ML VIAL.NEB IH SCH ×3 (18:45→19:36)
[2017-09-03] MEDS: DABIGATRAN ETEXILATE MESYLATE 150 MG CAPSULE PO SCH (20:04)
[2017-09-03] MEDS ORDERED: NON-FORMULARY 1 DOSE DOSE (Fluticasone/Salmeterol [Advair 100-50 Diskus] 1 PUFF) IH SCH (21:00)
[2017-09-04] MEDS ORDERED: LORazepam 2 MG/ML DISP.SYRIN IV ONE ×2 (01:02→03:50)
[2017-09-04] MEDS ORDERED: LORazepam 2 MG/ML DISP.SYRIN IV PRN (03:46)
[2017-09-04] MEDS: ALBUTEROL SULFATE 2.5 MG/0.5 ML VIAL.NEB IH SCH (06:18)
[2017-09-04] MEDS: BUDESONIDE 0.25 MG/2 ML VIAL.NEB IH SCH (06:19)
[2017-09-04] MEDS ORDERED: ONDANSETRON HCL/PF 2 MG/ML VIAL IV PRN (07:34)
--- NOTE | 2017-09-04 08:32 | DS ---
(1) Atrial fibrillation with RVR Problem: Acute (2) Mitral valve annular calcification Problem: Acute (3) Methamphetamine dependence Problem: Chronic (4) Mitral valve stenosis, moderate Problem: Chronic (5) Pulmonary hypertension Problem: Chronic Description of Stay: Initially treated with IV diltiazem. Transitioned to oral metoprolol. Anticoagulant Pradaxa, Stable. Procedures Performed: none Discharge Disposition: Home self care Disposition: Home self-care Condition: Good Discharge Activity: Activity as tolerated Discharge Diet: General/regular food Problem Oriented Discharge Instructions to Patient/Family: Atrial Fibrillation , [id number] Additional Patient Instructions (free text): See doctor of your choice in 1 week. Don't use methamphetamine. Prescriptions (Any new or edited meds): Dabigatran Etexilate Mesylate [Pradaxa] 150 mg PO BID #60 capsule Complete Home Medications List: Complete Home Medication List: Albuterol Sulfate [Albuterol Sulfate 2.5 MG/3 ML] 2.5 mg IH PRN PRN 08/12/17 Albuterol Sulfate [Proair Hfa] 2 puff IH Q4H PRN 08/12/17 Fluticasone/Salmeterol [Advair 100-50 Diskus] 1 puff IH BID 08/12/17 Furosemide [Lasix] 40 mg PO DAILY 08/12/17 Mirtazapine [Remeron] 30 mg PO HS 08/12/17 Potassium Chloride 10 meq PO DAILY 08/12/17 Acetaminophen [Tylenol] 650 mg PO Q4H PRN #30 tablet 08/15/17 Budesonide [Pulmicort Respules] 0.25 mg IH BIDRT vial.neb 09/04/17 Dabigatran Etexilate Mesylate [Pradaxa] 150 mg PO BID #60 capsule 09/04/17 Metoprolol Tartrate [Lopressor] 200 mg PO BID 09/04/17
[2017-09-04] MEDS ORDERED: METOPROLOL TARTRATE 100 MG TABLET PO SCH (09:00)
[2017-09-04] MEDS: DABIGATRAN ETEXILATE MESYLATE 150 MG CAPSULE PO SCH (09:22)
[2017-09-04] MEDS: LORazepam 1 MG TABLET PO PRN (09:22)
[2017-09-04 11:31] VITALS: BP 118/80
== END 2017-09-04 12:09 | disposition home or self-care (01) ==
LOC: ER 05:56 → INTOOBSV 08:20 → SCU 08:20 → MS 15:20
PROVIDERS: ADMIT Allergy & Immunology; ATTEND Allergy & Immunology
DX: I48.91 Unspecified atrial fibrillation (principal); J44.9 Chronic obstructive pulmonary disease, unspecified; I10 Essential (primary) hypertension; Z87.891 Personal history of nicotine dependence; I08.8 Other rheumatic multiple valve diseases; I05.0 Rheumatic mitral stenosis; F15.20 Other stimulant dependence, uncomplicated
CPT/HCPCS: 36415; 71010; 80053; 80307; 84484; 85025; 85610; 85730; 93005; 94640; 96365; 96366; 96375; 96376; 99285; G0378

== ENCOUNTER 2017-09-13 03:50 | Emergency (ER) | payer MEDICAID ==
[2017-09-13] MEDS ORDERED: ALBUTEROL SULFATE 2.5 MG/0.5 ML VIAL.NEB IH ONE ×2 (04:04→04:11)
[2017-09-13 04:14] LABS: Hemoglobin 12.4 gm/dL (13.5-18.0); Mean Cell Volume 78.2 fl (78-100); Mean Corpuscular Hemoglobin 24.8 pg (27-31); Mean Corpuscular Hgb Conc 31.8 g/dl (32-36); Mean Platelet Volume 9.9 fl (6.0-9.5); Neutrophil % 78.5 % (42-75.0); Platelet Count 177 K/mm3 (150-450); Red Blood Count 4.99 M/mm3 (4.7-6.0); Red Cell Distribution Width 14.8 % (11.5-14.0); White Blood Count 11.5 K/mm3 (4.0-10.5)
[2017-09-13 04:42] LABS: Albumin * 3.5 gm/dl (3.4-5.0); BUN/Creatinine Ratio 11.8 (9.0-21.6); Bilirubin, Total 0.8 mg/dL (0.0-1.1); Ca. Corrected For Albumin 8.7 mg/dL (8.4-10.2); Calcium * 8.6 mg/dL (7.9-10.9); Carbon Dioxide 25.7 mmol/L (24-32.6); Potassium 3.7 mmol/L (3.4-4.6); Total Protein 6.5 gm/dL (6.2-8.2)
[2017-09-13 04:43] LABS: Troponin I 0.024 ng/ml (0.00-0.10)
[2017-09-13 05:12] LABS: Urine Bilirubin Negative (NEGATIVE); Urine Blood Negative /ul (NEGATIVE); Urine Ketone Negative (NEGATIVE); Urine Nitrite Negative (NEGATIVE); Urine Protein 15 mg/dL (NEGATIVE); Urine Specific Gravity 1.015 SP.GR. (1.005-1.030)
[2017-09-13 05:21] LABS: Cocaine Ur Negative (NEGATIVE); Urine Appearance Clear; Urine Bacteria None Seen; Urine Barbiturate Negative (NEGATIVE); Urine Benzodiazepines Negative (NEGATIVE); Urine Color Yellow; Urine Opiates Negative (NEGATIVE); Urine PCP Negative (NEGATIVE); Urine RBC None Seen /hpf (0-5); Urine WBC None Seen /hpf (0-5)
[2017-09-13 05:22] LABS: Urine THC Positive (NEGATIVE)
[2017-09-13] MEDS ORDERED: FUROSEMIDE 10 MG/ML VIAL IV ONE (05:30)
--- NOTE | 2017-09-13 05:32 | ERNOTE ---
Dyspnea - Date Date of Service: 09/13/17 - General Presenting Symptoms: shortness of breath, difficulty of breathing, wheezing Time Seen by Provider: 09/13/17 04:00 Source: patient Exam Limitations: no limitations - Immun/Allergies/Home Medications Immunizations: IMMUNIZATION HX Immunizations Up to Date Yes History of Influenza Vaccine Yes Hx Pneumococcal Vaccination No Allergies/Adverse Reactions: Allergies venom-wasp [Wasp Venom] Allergy (Severe, Verified 09/13/17 04:10) Anaphylaxis NSAIDS (Non-Steroidal Anti-Inflamma Adverse Reaction (Unknown, Verified 04:10) unknown Patient unsure of reason. in [place] told him to not take NSAIDs due to abdominal problems. Home Medications: HOME MEDICATIONS Albuterol Sulfate [Albuterol Sulfate 2.5 MG/3 ML] 2.5 mg IH PRN PRN 08/12/17 [ Last Taken 08/25/17 07:00] Albuterol Sulfate [Proair Hfa] 2 puff IH Q4H PRN 08/12/17 [Last Taken 08/25/17 07:00] Fluticasone/Salmeterol [Advair 100-50 Diskus] 1 puff IH BID 08/12/17 [Last Taken 08/25/17 07:00] Furosemide [Lasix] 40 mg PO DAILY 08/12/17 [Last Taken 08/25/17 07:00] Mirtazapine [Remeron] 30 mg PO HS 08/12/17 [Last Taken 08/24/17 19:00] Potassium Chloride 10 meq PO DAILY 08/12/17 [Last Taken 08/25/17 07:00] Acetaminophen [Tylenol] 650 mg PO Q4H PRN #30 tablet 08/15/17 [Last Taken 07:00] Budesonide [Pulmicort Respules] 0.25 mg IH BIDRT vial.neb 09/04/17 [Last Taken Unknown] Dabigatran Etexilate Mesylate [Pradaxa] 150 mg PO BID #60 capsule 09/04/17 [ Last Taken Unknown] Metoprolol Tartrate [Lopressor] 200 mg PO BID 09/04/17 [Last Taken Unknown] - History of Present Illness Narrative: acute onset of dyspnea following smoking meth Severity: moderate Treatment RECY[employer]S [employer]: by patient Initiating event: Reports: other - meth use Modifying Factors - (Improves): Reports: nothing Modifying Factors (Worsens): Reports: nothing Associated Symptoms-Dyspnea: Reports: wheezing Prior Treatment: Reports: recently seen Review of Systems - Narrative Narrative: patient c/o acute onset of dyspnea, recently smoked meth, hx of a-fib chf - Review of Systems Constitutional: Present: See HPI, malaise EYE: Present: no symptoms reported ENT: Present: no symptoms reported Respiratory: Present: See HPI, shortness of breath Cardiology: Present: no symptoms reported Gastrointestinal/Abdominal: Present: no symptoms reported Genitourinary: Present: no symptoms reported Musculoskeletal: Present: no symptoms reported Skin: Present: no symptoms reported Neurological: Present: no symptoms reported Endocrine: Present: no symptoms reported Hematologic/Lymphatic: Present: no symptoms reported All Other Systems: All systems neg except as marked - Patient's Past Medical History Patient History - Medical: No pertinent hx, Other - hax of a-fib Patient History - Cardiac/Respiratory: Atrial Fibrillation, COPD, Hypertension, Peripheral Vascular Disease Patient History - Cancer: No Hx of Cancer Patient History - Surgical Procedures: Cholecystectomy, Other, Orthopedic Patient History - Other: None - Family History Family History:: no untoward family reactions to anesthesia, no familial bleeding tendencies, no family history of clotting disorders, no family history of premature - Family History Mother Family History - Medical: No pertinent hx Family History - Cardiac/Respiratory: No pertinent hx Family History - Cancer: No pertinent family hx Father Family History - Medical: No pertinent hx Family History - Cardiac/Respiratory: No pertinent hx Family History - Cancer: No pertinent family hx - Social History Living Situations: home Abuse History: Hx of Substance Use, Hx -Substance Use Tx Psych History: No pertinent hx, Hx of Anxiety Does anyone smoke in the home?: No Smoking Status: Former smoker Have you smoked in the past 12 months: No Do you dip or chew tobacco: No Patient requests Smoking Cessation Consult: No Initiate information on Smoking Cessation: No Alcohol Use: none Drug Use: marijuana - Immunizations Immunizations Up to Date: Yes Hx Pneumococcal Vaccination: No History of Influenza Vaccine: Yes Physical Exam - Physical Exam Narrative: patient appears in mild distress General Appearance: Present: mild distress Head Exam: Present: normal inspection, no evidence of injury Eye Exam: Normal inspection: bilateral, PERRL: bilateral, EOMI: bilateral Ears, Nose, Throat: Present: normal ENT inspection Neck: Present: normal inspection, nontender Respiratory: Present: wheezing Cardiovascular/Chest: Present: regular rate, rhythm, no murmur, normal peripheral pulses Peripheral Pulses: N=norm/S=strong/W=weak/B=bound/A=absent: Carotid (R): Normal , Carotid (L): Normal, Radial (R): Normal, Radial (L): Normal, Femoral (R): Normal, Femoral (L): Absent - bka Gastrointestinal/Abdominal: Present: normal bowel sounds, nontender, nondistended, soft, no organomegaly Back Exam: Present: normal inspection, normal range of motion, no CVA tenderness , no vertebral tenderness Extremity Exam: Present: normal inspection, normal range of motion, no edema, other - bka left lower extremity Neurological Exam: Present: alert, oriented, normal mood/affect, no motor/ sensory deficits DTR: N=norm/NB=norm/brisk/A=abs/DD=dull/dimin/HC=hyperactive: Bicep (R): Normal , Bicep (L): Normal, Tricep (R): Normal, Tricep (L): Normal, Knee (R): Normal, Knee (L): Normal Skin Exam: Present: normal color, warm/dry Lymphatic Exam: Present: no adenopathy ED Progress - Results and Orders Patient's Lab Results:: I have reviewed the patient's lab results. - Vital Signs Patient's Vital Signs:: I have reviewed the patient's vital signs. Vital Signs: Vital Signs 09/13/17 09/13/17 04:05 04:11 Temperature 36.9 C Pulse Rate 91 90 Respiratory 18 18 Rate Blood Pressure 120/74 O2 Sat by Pulse 98 97 Oximetry - EKG EKG: atrial fibrillation EKG read: Interp. by me - X-Ray X-Ray #1 X-Ray: chest - increased pulmonary vascular markings Interpretation: Interp. by ut - increase pulmonary congestion - Progress/Reassessment Chief Complaint: Dyspnea Progress:: Improved - Transfer of Care Expected Disposition: Discharge Departure Clinical Impression: Dyspnea, Methamphetamine abuse, CHF (congestive heart failure), COPD (chronic obstructive pulmonary disease), Buerger's disease, Methamphetamine dependence - Departure Disposition: Home Follow Up Needed Condition: Fair Instructions: Atrial Fibrillation, [id number] Additional Instructions: to double lasix for next three days
[2017-09-13] MEDS ORDERED: FUROSEMIDE 10 MG/ML VIAL ONE (06:03)
[2017-09-13 06:46] VITALS: BP 116/72
== END 2017-09-13 06:50 | disposition home or self-care (01) ==
LOC: ER 03:50
DX: R06.00 Dyspnea, unspecified (principal); F15.20 Other stimulant dependence, uncomplicated; I50.9 Heart failure, unspecified; J44.9 Chronic obstructive pulmonary disease, unspecified; I73.1 Thromboangiitis obliterans [Buerger's disease]

== ENCOUNTER 2017-10-29 16:27 | Emergency (ER) | payer MEDICAID ==
--- NOTE | 2017-10-29 16:53 | ERNOTE ---
Abdominal HPI - General Chief Complaint: Dyspnea Time Seen by Provider: 10/29/17 16:33 Source: patient Exam Limitations: no limitations - Immun/Allergies/Home Medications Immunizatons: IMMUNIZATION HX Immunizations Up to Date Yes History of Influenza Vaccine No Hx Pneumococcal Vaccination No Allergies/Adverse Reactions: Allergies venom-wasp [Wasp Venom] Allergy (Severe, Verified 10/29/17 04:14) Anaphylaxis NSAIDS (Non-Steroidal Anti-Inflamma Adverse Reaction (Unknown, Verified 04:14) unknown Patient unsure of reason. in [place] told him to not take NSAIDs due to abdominal problems. Home Medications: HOME MEDICATIONS Albuterol Sulfate [Albuterol Sulfate 2.5 MG/3 ML] 2.5 mg IH PRN PRN 08/12/17 [ Last Taken 08/25/17 07:00] Albuterol Sulfate [Proair Hfa] 2 puff IH Q4H PRN 08/12/17 [Last Taken 08/25/17 07:00] Acetaminophen [Tylenol] 650 mg PO Q4H PRN #30 tablet 08/15/17 [Last Taken 07:00] Metoprolol Tartrate [Lopressor] 100 mg PO BID 09/04/17 [Last Taken Unknown] Warfarin Sodium [Coumadin] 7.5 mg PO DAILY 09/17/17 [Last Taken Unknown] HYDROcodone/ACETAMINOPHEN [[place] 5-325] 1 tab PO Q4H PRN #40 tab 10/16/17 [Last Taken Unknown] Promethazine HCl [Phenergan (Promethazine)] 25 mg PO Q4H PRN #30 tab 10/16/17 [ Last Taken 10/17/17 12:00] Fluticasone/Salmeterol [Advair 250-50 Diskus] 1 puff IH BID 10/18/17 [Last Taken Unknown] Furosemide [Lasix] 20 mg PO BID 10/18/17 [Last Taken Unknown] Ondansetron HCl [Zofran] 1 - 2 tab PO Q8H PRN #10 tab 10/18/17 [Last Taken Unknown] Potassium Chloride 2 tab PO DAILY 10/18/17 [Last Taken Unknown] chlorproMAZINE HCL [Thorazine] 10 mg PO Q6H PRN #10 tab 10/29/17 [Last Taken Unknown] - History of Present Illness Narrative: Patient has had multiple ER visits for abdominal pain and vomiting. He started vomiting last night, was seen in the ER this morning, treated with thorazine and discharged home when he felt better. Apparently there has been a problem with getting his thorazine approved by his insurance. When he got home today he started vomiting again, last 30 minutes prior to coming, last THC yesterday, last meth three days ago. He states that he is working on getting into rehab for his drug addiction, was evaluated by a drug counsellor in [place] and is waiting for placement in facility. Timing: intermittent Quality: moderate Associated Symptoms: Present: vomiting Prior Treatment: Present: recently seen Review of Systems - Review of Systems Constitutional: Present: chills. Absent: recent illness, fever Respiratory: Present: shortness of breath, cough Cardiology: Absent: chest pain Gastrointestinal/Abdominal: Present: See HPI, nausea, vomiting, abdominal pain Genitourinary: Present: no symptoms reported Neurological: Absent: headache - Patient's Past Medical History Patient History - Medical: Kidney stone, Liver Disease, Other Patient History - Cardiac/Respiratory: Atrial Fibrillation, COPD, Hypertension, Peripheral Vascular Disease, Other Patient History - Cancer: No Hx of Cancer Patient History - Surgical Procedures: Cholecystectomy, Other, Orthopedic Patient History - Other: None - Family History Mother Family History - Medical: No pertinent hx Family History - Cardiac/Respiratory: No pertinent hx Family History - Cancer: No pertinent family hx Father Family History - Medical: No pertinent hx Family History - Cardiac/Respiratory: No pertinent hx Family History - Cancer: No pertinent family hx - Social History Living Situations: home Abuse History: No History of abuse, Hx of Substance Use, Hx -Substance Use Tx Psych History: Hx of Anxiety, Hx of Anxiety Smoking Status: Former smoker Have you smoked in the past 12 months: No Do you dip or chew tobacco: No Alcohol Use: occasionally Drug Use: marijuana, meth - Immunizations Immunizations Up to Date: Yes Hx Pneumococcal Vaccination: No History of Influenza Vaccine: No Physical Exam - Physical Exam General Appearance: Present: wd/wn, alert, no apparent distress Head Exam: Present: normal inspection Ears, Nose, Throat: Present: normal pharynx Respiratory: Present: no respiratory distress, normal breath sounds, no accessory muscle use, lungs clear Cardiovascular/Chest: Present: irregularly irregular Gastrointestinal/Abdominal: Present: normal bowel sounds, nontender, nondistended, soft Extremity Exam: Present: normal except - - left leg BKA Neurological Exam: Present: alert, oriented, normal mood/affect Skin Exam: Present: normal color, warm/dry ED Progress - Results and Orders Patient's Lab Results:: I have reviewed the patient's lab results. - Vital Signs Patient's Vital Signs:: I have reviewed the patient's vital signs. Vital Signs: Vital Signs 10/29/17 16:27 Temperature 36.5 C Pulse Rate 115 H Respiratory 12 Rate Blood Pressure 174/110 O2 Sat by Pulse 96 Oximetry - EKG EKG: atrial fibrillation, nonspecific ST T wave changes EKG read: Interp. by me - Progress/Reassessment Chief Complaint: Dyspnea Progress Note-Subjective: 10/29/17 18:03 no vomiting while here, patient resting comfortable in no distress, tolerated water 10/29/17 18:09 discussed INR results, patient has follow up appointment tomorrow Departure Clinical Impression: Over-anticoagulated Afib Qualifiers: Atrial fibrillation type: chronic Qualified Code(s): I48.2 - Chronic atrial fibrillation Vomiting Qualifiers: Vomiting type: unspecified Vomiting Intractability: non-intractable Nausea presence: with nausea Qualified Code(s): R11.2 - Nausea with vomiting, unspecified - Departure Disposition: Home self-care Condition: Stable Instructions: Nausea, Adult Additional Instructions: do not take any coumadin tonight, Follow up with [facility] as scheduled take all your other medications as prescribed Referrals: [facility]ee [Pharmacy] -
[2017-10-29 17:31] LABS: Prothrombin Time (Patient) 79.9 Seconds (9.0-11.0)
[2017-10-29 17:34] LABS: INR 7.83 INR (0.90-1.10)
[2017-10-29] MEDS ORDERED: METOPROLOL TARTRATE 100 MG TABLET PO ONE (18:09)
[2017-10-29] MEDS ORDERED: METOPROLOL TARTRATE 100 MG TABLET ONE (18:09)
[2017-10-29 18:11] VITALS: BP 152/94
== END 2017-10-29 18:21 | disposition home or self-care (01) ==
LOC: ER 16:27
DX: Z87.442 Personal history of urinary calculi; R11.2 Nausea with vomiting, unspecified; Z79.01 Long term (current) use of anticoagulants; Z87.891 Personal history of nicotine dependence; I48.2 Chronic atrial fibrillation